=== PATIENT | female | born 1940 | race Caucasian/White ===

== ENCOUNTER 2016-11-26 10:35 | Outpatient (CLI) | payer MEDICARE, OTHER | END 2016-11-26 10:36 | disposition home or self-care (01) | DX: Z12.31 Encounter for screening mammogram for malignant neoplasm of breast (principal) ==

== ENCOUNTER 2017-01-15 11:19 | Outpatient (CLI) | payer MEDICARE, OTHER ==
[2017-01-15 19:52] LABS: ALBUMIN/GLOBULIN RATIO 1.2 (1.0-2.2); BILIRUBIN,TOTAL 0.5 mg/dL (0.2-1.0); BUN - BLOOD UREA NITROGEN 45 mg/dL (6-20); CALCIUM 8.2 mg/dL (8.5-10.3); CARBON DIOXIDE - CO2 27 mmol/L (21-32); CHLORIDE 107 mmol/L (101-111); CHOL/HDL RATIO 2.8 (<4.4); CHOLESTEROL 198 mg/dL; CREATININE 2.5 mg/dL (0.4-1.0); GFR - MDRD 19 (>89); GLUCOSE 144 mg/dL (70-100); HDL CHOLESTEROL 70 mg/dL; LDL/HDL RATIO 1.5 (<4.4); POTASSIUM 5.1 mmol/L (3.5-5.0); SODIUM 141 mmol/L (135-145); TOTAL PROTEIN 5.5 g/dL (6.7-8.2); TRIGLYCERIDES 106 mg/dL; VLDL CHOLESTEROL 21 mg/dL
[2017-01-15 20:16] LABS: HEMOGLOBIN A1C 0.53 g/dL
== END 2017-01-15 11:20 | disposition home or self-care (01) ==
LOC: LAB.WCP 11:19
PROVIDERS: ATTEND Physician Assistant Medical
DX: E11.9 Type 2 diabetes mellitus without complications (principal); E05.90 Thyrotoxicosis, unspecified without thyrotoxic crisis or storm; E78.5 Hyperlipidemia, unspecified
CPT/HCPCS: 36415; 80053; 80061; 83036; 84443

== ENCOUNTER 2017-01-17 08:00 | Outpatient (CLI) | payer MEDICARE, OTHER ==
[2017-01-17 19:40] LABS: CREATININE 2.3 mg/dL (0.4-1.0); POTASSIUM 4.6 mmol/L (3.5-5.0)
== END 2017-01-17 08:01 | disposition home or self-care (01) ==
LOC: LAB.WCP 08:00
PROVIDERS: ATTEND Physician Assistant Medical
DX: N28.9 Disorder of kidney and ureter, unspecified (principal)
CPT/HCPCS: 36415; 80048

== ENCOUNTER 2017-04-10 13:55 | Outpatient (CLI) | payer MEDICARE, OTHER | END 2017-04-10 13:56 | disposition home or self-care (01) | LOC: LAB.R 13:55 | PROVIDERS: ATTEND Physician Assistant Medical | DX: L03.116 Cellulitis of left lower limb (principal) | CPT/HCPCS: 87070; 87205 ==

== ENCOUNTER 2017-04-10 14:11 | Outpatient (CLI) | payer MEDICARE, OTHER ==
[2017-04-10 18:57] LABS: BASOPHILS # (AUTO) 0.1 10^3/uL (0.0-0.1); BASOPHILS % (AUTO) 0.7 %; EOSINOPHILS # (AUTO) 0.3 10^3/uL (0.0-0.7); EOSINOPHILS % (AUTO) 3.2 %; HCT - HEMATOCRIT 31.2 % (37.0-47.0); HGB - HEMOGLOBIN 10.4 g/dL (12.0-16.0); LYMPHOCYTES # (AUTO) 1.4 10^3/uL (1.5-3.5); LYMPHOCYTES % (AUTO) 17.1 %; MEAN CORPUSCULAR HEMOGLOBIN 31.8 pg (27.0-31.0); MEAN CORPUSCULAR HGB CONC 33.4 g/dL (32.0-36.0); MEAN CORPUSCULAR VOLUME 95.2 fL (81.0-99.0); MEAN PLATELET VOLUME 8.9 fL (7.9-10.8); MONOCYTES # (AUTO) 0.6 10^3/uL (0.0-1.0); MONOCYTES % (AUTO) 7.2 %; NEUTROPHILS % (AUTO) 71.8 %; RED BLOOD COUNT 3.28 10^6/uL (4.20-5.40); RED CELL DISTRIBUTION WIDTH 13.1 % (12.0-15.0); UNCORRECTED WHITE BLOOD COUNT 8.4 x10^3/uL; WHITE BLOOD COUNT 8.4 x10^3/uL (4.8-10.8)
[2017-04-10 19:27] LABS: CALCIUM 8.2 mg/dL (8.5-10.3); CREATININE 2.6 mg/dL (0.4-1.0); POTASSIUM 4.7 mmol/L (3.5-5.0)
== END 2017-04-10 14:12 ==
LOC: LAB.WCP 14:11
PROVIDERS: ATTEND Physician Assistant Medical
DX: I50.9 Heart failure, unspecified (principal)
CPT/HCPCS: 36415; 80048; 83880; 85025

== ENCOUNTER 2017-04-15 16:30 | Outpatient (CLI) | payer MEDICARE, OTHER ==
--- NOTE | 2017-04-16 03:46 | Ultrasound Report ---
EXAM: LEFT LOWER EXTREMITY VENOUS ULTRASOUND EXAM DATE: 04/15/2017 05:34 PM. CLINICAL HISTORY: LEG EDEMA, LEFT. COMPARISON: None. TECHNIQUE: Real-time sonographic vascular imaging was performed by the toll ticket clerk through the lower extremity utilizing both color-flow and Doppler spectral analysis. Multiple insurance claims representative static jaz ges were saved for review. FINDINGS: Common Femoral Vein (CFV): Normal. CFV-GSV Junction: Normal. Profunda Femoral Vein (PFV): Normal. Femoral Vein (FV) Prox: Normal. Femoral Vein (FV) Mid: Normal. Femoral Vein (FV) Dist: Normal. Popliteal Vein: Normal. Posterior Tibial Veins: Normal. Peroneal Veins: Normal. Contralateral Side CFV: Normal. Other: None. IMPRESSION: No evidence for deep venous thrombosis. [facility] Referring Provider Line: [phone] SITE ID: [id number]
== END 2017-04-15 16:31 | disposition home or self-care (01) ==
LOC: DI 16:30
PROVIDERS: ATTEND Physician Assistant Medical
DX: R60.0 Localized edema (principal)

== ENCOUNTER 2017-04-18 16:55 | Outpatient (CLI) | payer MEDICARE, OTHER ==
[2017-04-18 19:08] LABS: BASOPHILS # (AUTO) 0.1 10^3/uL (0.0-0.1); BASOPHILS % (AUTO) 0.7 %; EOSINOPHILS # (AUTO) 0.3 10^3/uL (0.0-0.7); EOSINOPHILS % (AUTO) 4.1 %; HCT - HEMATOCRIT 30.2 % (37.0-47.0); LYMPHOCYTES # (AUTO) 1.1 10^3/uL (1.5-3.5); LYMPHOCYTES % (AUTO) 14.4 %; MEAN CORPUSCULAR HGB CONC 33.1 g/dL (32.0-36.0); MEAN CORPUSCULAR VOLUME 93.4 fL (81.0-99.0); MEAN PLATELET VOLUME 8.7 fL (7.9-10.8); MONOCYTES # (AUTO) 0.6 10^3/uL (0.0-1.0); MONOCYTES % (AUTO) 7.9 %; NEUTROPHILS # (AUTO) 5.4 10^3/uL (1.5-6.6); NEUTROPHILS % (AUTO) 72.9 %; RED BLOOD COUNT 3.24 10^6/uL (4.20-5.40); UNCORRECTED WHITE BLOOD COUNT 7.4 x10^3/uL; WHITE BLOOD COUNT 7.4 x10^3/uL (4.8-10.8)
[2017-04-18 19:21] LABS: CALCIUM 7.9 mg/dL (8.5-10.3); POTASSIUM 4.2 mmol/L (3.5-5.0)
== END 2017-04-18 16:56 ==
LOC: LAB.WCP 16:55
PROVIDERS: ATTEND Physician Assistant Medical
DX: R60.0 Localized edema (principal); R06.09 Other forms of dyspnea; L03.116 Cellulitis of left lower limb
CPT/HCPCS: 36415; 80048; 83880; 85025

== ENCOUNTER 2017-05-10 08:00 | Outpatient (CLI) | payer MEDICARE, OTHER ==
[2017-05-10 20:26] LABS: FERRITIN 31.5 ng/mL (11.0-306.8)
[2017-05-10 20:28] LABS: CALCIUM 8.2 mg/dL (8.5-10.3); CREATININE 2.7 mg/dL (0.4-1.0); POTASSIUM 5.1 mmol/L (3.5-5.0)
[2017-05-10 20:30] LABS: FOLATE 17.33 ng/mL (5.90 - >24.8)
== END 2017-05-10 08:01 | disposition home or self-care (01) ==
LOC: LAB.WCP 08:00
PROVIDERS: ATTEND Physician Assistant Medical
DX: N28.9 Disorder of kidney and ureter, unspecified (principal); D64.9 Anemia, unspecified
CPT/HCPCS: 36415; 80048; 82607; 82728; 82746; 83540; 84466

== ENCOUNTER 2017-05-21 13:22 | Outpatient (CLI) | payer MEDICARE, OTHER ==
[2017-05-21 19:43] LABS: CALCIUM 8.2 mg/dL (8.5-10.3); CREATININE 2.1 mg/dL (0.4-1.0); POTASSIUM 4.6 mmol/L (3.5-5.0)
[2017-05-21 19:53] LABS: HCT - HEMATOCRIT 33.9 % (37.0-47.0); HGB - HEMOGLOBIN 10.9 g/dL (12.0-16.0); MEAN CORPUSCULAR HEMOGLOBIN 30.8 pg (27.0-31.0); MEAN CORPUSCULAR HGB CONC 32.2 g/dL (32.0-36.0); MEAN CORPUSCULAR VOLUME 95.7 fL (81.0-99.0); MEAN PLATELET VOLUME 9.1 fL (7.9-10.8); RED BLOOD COUNT 3.54 10^6/uL (4.20-5.40); RED CELL DISTRIBUTION WIDTH 14.4 % (12.0-15.0); WHITE BLOOD COUNT 6.5 x10^3/uL (4.8-10.8)
== END 2017-05-21 13:23 | disposition home or self-care (01) ==
LOC: LAB.WCP 13:22
PROVIDERS: ATTEND Internal Medicine Nephrology
DX: N05.9 Unspecified nephritic syndrome with unspecified morphologic changes (principal); D70.9 Neutropenia, unspecified; D63.1 Anemia in chronic kidney disease; E83.30 Disorder of phosphorus metabolism, unspecified; D68.9 Coagulation defect, unspecified
CPT/HCPCS: 36415; 80048; 83970; 84100

== ENCOUNTER 2017-06-03 15:05 | Outpatient (CLI) | payer MEDICARE, OTHER ==
--- NOTE | 2017-06-03 16:02 | Ultrasound Report ---
RENAL ULTRASOUND: 06/03/2017 CLINICAL INDICATION: Stage IV kidney disease. COMPARISON: 01/16/2015 TECHNIQUE: Real-time scanning was performed with sales solutions representative static images obtained. FINDINGS: The right kidney measures 9.5 x 5.0 x 4.8 cm, and demonstrates a 5-mm exophytic cyst. No hydronephrosis, solid renal lesion, or perinephric collection is present. The left kidney measures 10.1 x 4.7 x 4.2 cm. There is a 4.1-cm upper pole cyst. No solid renal les ion, hydronephrosis, or perinephric collection is present. Prevoid, the bladder measures 8.9 x 5.2 x 4.8 cm, yielding a prevoid volume of 127 mL. Postvoid resi dual is 49 mL. No free fluid is noted. IMPRESSION: 49 ML POSTVOID RESIDUAL. NO HYDRONEPHROSIS. JOB #: [id number] EXT JOB #:[id number]
== END 2017-06-03 15:06 | disposition home or self-care (01) ==
LOC: DI 15:05
PROVIDERS: ATTEND Internal Medicine Nephrology
DX: N18.4 Chronic kidney disease, stage 4 (severe) (principal)
CPT/HCPCS: 76770

== ENCOUNTER 2017-06-20 08:00 | Outpatient (CLI) | payer MEDICARE, OTHER ==
[2017-06-20 20:15] LABS: CALCIUM 8.3 mg/dL (8.5-10.3); CREATININE 2.5 mg/dL (0.4-1.0); POTASSIUM 4.6 mmol/L (3.5-5.0)
[2017-06-20 20:29] LABS: FERRITIN 27.5 ng/mL (11.0-306.8)
[2017-06-20 20:33] LABS: FOLATE 13.46 ng/mL (5.90 - >24.8)
== END 2017-06-20 08:01 | disposition home or self-care (01) ==
LOC: LAB.WCP 08:00
PROVIDERS: ATTEND Internal Medicine Nephrology
DX: N05.9 Unspecified nephritic syndrome with unspecified morphologic changes (principal); D50.0 Iron deficiency anemia secondary to blood loss (chronic); D64.9 Anemia, unspecified
CPT/HCPCS: 36415; 80048; 82607; 82728; 82746; 83540; 84466

== ENCOUNTER 2017-09-20 08:00 | Outpatient (CLI) | payer MEDICARE, OTHER ==
[2017-09-20 19:06] LABS: HGB - HEMOGLOBIN 9.9 g/dL (12.0-16.0); MEAN CORPUSCULAR HEMOGLOBIN 30.6 pg (27.0-31.0); MEAN CORPUSCULAR HGB CONC 32.2 g/dL (32.0-36.0); MEAN CORPUSCULAR VOLUME 95.2 fL (81.0-99.0); MEAN PLATELET VOLUME 8.2 fL (7.9-10.8); RED BLOOD COUNT 3.22 10^6/uL (4.20-5.40); RED CELL DISTRIBUTION WIDTH 13.3 % (12.0-15.0); WHITE BLOOD COUNT 9.3 x10^3/uL (4.8-10.8)
[2017-09-20 19:16] LABS: CREATININE 2.8 mg/dL (0.4-1.0); URIC ACID 8.7 mg/dL (2.6-7.2)
[2017-09-20 21:15] LABS: CREATININE,URINE 42.3 mg/dL; PROTEIN/CREATININE RATIO,URINE 3.1 (<=0.2)
[2017-09-24 23:11] LABS: ALBUMIN 2.7 g/dL (3.8-4.8); ALPHA 1 GLOBULIN 0.4 g/dL (0.2-0.3); ALPHA 2 GLOBULIN 0.6 g/dL (0.5-0.9); ANCA SCREEN NEGATIVE (NEGATIVE); BETA 1 GLOBULIN 0.4 g/dL (0.4-0.6); BETA 2 GLOBULIN 0.3 g/dL (0.2-0.5); GAMMA GLOBULIN 0.7 g/dL (0.8-1.7)
== END 2017-09-20 08:01 | disposition home or self-care (01) ==
LOC: LAB.WCP 08:00
PROVIDERS: ATTEND Family Medicine
DX: M79.671 Pain in right foot (principal); D70.9 Neutropenia, unspecified; M31.30 Wegener's granulomatosis without renal involvement; N05.9 Unspecified nephritic syndrome with unspecified morphologic changes; D63.1 Anemia in chronic kidney disease; D47.2 Monoclonal gammopathy; R80.9 Proteinuria, unspecified
CPT/HCPCS: 36415; 80048; 81599; 82570; 84155; 84156; 84165; 84166; 84550; 85025; 86021; 86334; 86335

== ENCOUNTER 2017-10-16 20:53 | Outpatient (CLI) | payer MEDICARE, OTHER ==
--- NOTE | 2017-10-16 22:41 | Ultrasound Preliminary Report ---
Exam: US DUPLEX EXT VEINS RIGHT IMPRESSION: 1. Limited study given significant soft tissue edema throughout the right leg. 2. Given the limitations, no deep venous thrombosis is seen. 3. Hypoechoic fluid collection in the lateral right knee measuring 2.2 x 1.8 x 0.7 cm. [facility] The call report notification system was initiated by Dr. Marcela Mchugh at 22:35 hrs on 10/16/17. The above findings were discussed with ANGELES Moody by Dr. Marcela Mchugh at 22:39 hrs on . SITE ID: [id number]
--- NOTE | 2017-10-16 23:19 | Ultrasound Report ---
EXAM: RIGHT LOWER EXTREMITY VENOUS ULTRASOUND EXAM DATE: 10/16/2017 10:19 PM. CLINICAL HISTORY: Right leg edema. COMPARISON: None. TECHNIQUE: Real-time sonographic vascular imaging was performed by the script girl through the lower extremity utilizing both color-flow and Doppler spectral analysis. Multiple patient financial representative static jaz ges were saved for review. FINDINGS: Common Femoral Vein (CFV): Normal. CFV-GSV Junction: Normal. Profunda Femoral Vein (PFV): Normal. Femoral Vein (FV) Prox: Normal. Femoral Vein (FV) Mid: No thrombus. Not well seen. Femoral Vein (FV) Dist: No thrombus. Not well seen. Popliteal Vein: Normal. Posterior Tibial Veins: Not well seen. No obvious thrombus. Peroneal Veins: Not well seen. No obvious thrombus. Contralateral Side CFV: Normal. Other: Significant limitations due to soft tissue edema. Collection in the lateral right knee region measures 2.2 x 1.8 x 0.7 cm. Definite continuity with the joint space is not established. IMPRESSION: 1. Limited study given significant soft tissue edema throughout the right leg. 2. Given the limitations, no deep venous thrombosis is seen. 3. Hypoechoic fluid collection in the lateral right knee measuring 2.2 x 1.8 x 0.7 cm. [facility] The call report notification system was initiated by Dr. Marcela Mchugh at 22:35 hrs on 10/16/17. The above findings were discussed with ANGELES Moody by Dr. Marcela Mchugh at 22:39 hrs on . Referring Provider Line: [phone] SITE ID: [id number]
--- NOTE | 2017-10-17 13:16 | XRAY Report ---
TWO VIEW CHEST: 10/17/2017 CLINICAL INDICATION: Dyspnea on exertion. COMPARISON: 04/10/2017. FINDINGS: Frontal and lateral views of the chest demonstrate an enlarged cardiac silhouette. Mild pulmonary vascular congestion is present, as are small effusions. No pneumothorax or focal infiltrate is seen. IMPRESSION: MILD CONGESTIVE FAILURE. TD: 10/17/2017 13:15
== END 2017-10-16 20:54 | disposition home or self-care (01) ==
LOC: DI 20:53
PROVIDERS: ATTEND Physician Assistant Medical
DX: I50.9 Heart failure, unspecified (principal); M25.461 Effusion, right knee; R60.0 Localized edema
CPT/HCPCS: 71046

== ENCOUNTER 2017-10-22 08:00 | Outpatient (CLI) | payer MEDICARE, OTHER ==
[2017-10-22 19:28] LABS: CALCIUM 7.6 mg/dL (8.5-10.3); CREATININE 2.9 mg/dL (0.4-1.0)
== END 2017-10-22 08:01 | disposition home or self-care (01) ==
LOC: LAB.R 08:00
PROVIDERS: ATTEND Physician Assistant Medical
DX: R60.0 Localized edema (principal)
CPT/HCPCS: 80048

== ENCOUNTER 2017-11-18 14:22 | Outpatient (CLI) | payer MEDICARE, OTHER ==
[2017-11-18 21:15] LABS: CALCIUM 7.8 mg/dL (8.5-10.3); CREATININE 3.7 mg/dL (0.4-1.0)
== END 2017-11-18 14:23 | disposition home or self-care (01) ==
LOC: LAB.WCP 14:22
PROVIDERS: ATTEND Physician Assistant Medical
DX: R60.0 Localized edema (principal); L03.116 Cellulitis of left lower limb
CPT/HCPCS: 36415; 80048; 87070; 87205

== ENCOUNTER 2017-11-19 14:05 | Emergency (ER) | payer MEDICARE, OTHER ==
[2017-11-19 14:17] VITALS: BP 143/42
--- NOTE | 2017-11-19 16:40 | ED Physician Documentation ---
PD HPI LOWER EXT INJURY - Stated complaint Stated Complaint: SORES ON LEGS - Chief complaint Chief Complaint: Wound - History obtained from History obtained from: Patient - History of Present Illness PD HPI LOW EXT INJURY LOCATION: Right, Left, Lower leg Type of injury: Blunt / blow, Laceration (yesterday when she bumpded her shins into dishwaswer and got peels of skin from then. Still with skin in place, but is thin, to have dressing changed toay.) Where injury occurred: Home Review of Systems Constitutional: denies: Fever, Chills Cardiac: denies: Chest pain / pressure, Palpitations Respiratory: denies: Dyspnea, Cough GI: denies: Abdominal Pain, Nausea, Vomiting PD PAST MEDICAL HISTORY - Past Medical History Past Medical History: Yes Cardiovascular: Congestive heart failure, Hypertension, High cholesterol, Valve disorder Respiratory: Pneumonia - Past Surgical History Past Surgical History: Yes - Present Medications Home Medications: Ambulatory Orders Medication Instructions Recorded Confirmed Amlodipine Besylate 10 mg PO DAILY 02/04/15 02/04/15 Aspirin [Aspirin EC] 81 mg PO DAILY 02/04/15 02/04/15 Atorvastatin Calcium 40 mg PO DAILY 02/04/15 02/04/15 Carvedilol 12.5 mg PO BID 02/04/15 02/04/15 Furosemide 80 mg PO DAILY 02/04/15 02/04/15 Isosorbide Mononitrate [Isosorbide 30 mg PO DAILY 02/04/15 02/04/15 Mononitrate ER] Lisinopril 5 mg PO BID 02/04/15 02/04/15 Tramadol HCl 50 mg PO Q6H PRN #20 tablet 11/19/17 - Allergies Allergies/Adverse Reactions: Allergies Allergy/AdvReac Type Severity Reaction Status Date / Time No Known Drug Allergies Allergy Verified 01/15/15 13:46 - Social History Does the pt smoke?: No Smoking Status: Never smoker Does the pt drink ETOH?: Yes ETOH Use: Wine, Liquor Does the pt have substance abuse?: No - Immunizations Immunizations are current?: Yes - POLST Patient has POLST: No PD ED PE NORMAL - Vitals Vital signs reviewed: Yes - General General: Alert and oriented X 3, No acute distress, Well developed/nourished - Neck Neck: Supple, no meningeal sign, No adenopathy - Cardiac Cardiac: RRR, No murmur - Respiratory Respiratory: Clear bilaterally - Abdomen Abdomen: Soft, Non tender - Female Female : Deferred - Rectal Rectal: Deferred - Back Back: No CVA TTP, No spinal TTP - Derm Derm: Normal color, Warm and dry - Extremities Extremities: No tenderness to palpate, Normal ROM s pain, No edema, Other ( partial thickenss peels of skin present, with dressing. Normal sensaton , color cap refill. Good dressing in place. Removed and the wound does not appear infecto ). No: No calf tenderness / cord - Neuro Neuro: Alert and oriented X 3 Eye Opening: Spontaneous Motor: Obeys Commands Verbal: Oriented GCS Score: 15 Results - Vitals Vitals: Oxygen O2 Source Room air PD MEDICAL DECISION MAKING - ED course Complexity details: reviewed results, re-evaluated patient (I think she got into ED inadvertnetly, and was usupposed to go to [facility]. Will direct her to right location for next scheduled dressing change. ), considered differential (peels of thin skin in place. Dressing in place with some drainage color of the bandages), d/w patient Departure - Departure Disposition: 01 Home, Self Care Clinical Impression: Dressing change Laceration of lower leg Qualifiers: Encounter type: initial encounter Laterality: unspecified laterality Qualified Code(s): S81.819A - Laceration without foreign body, unspecified lower leg, initial encounter Condition: Stable Record reviewed to determine appropriate education?: Yes Instructions: ED Bandage Change Follow-Up: Isabel Steve PA-C [Primary Care Provider] - Prescriptions: Tramadol HCl 50 mg PO Q6H PRN #20 tablet PRN Reason: Pain Comments: Leave the dressings on until follow-up. Contact your primary care tomorrow to see if she intended for you to go to the wound care clinic as opposed to the emergency room. See when the next appointment is for that. Use Tylenol or ibuprofen if needed for pains. Add tramadol if needed for worse pain. Get the antibiotics prescribed by your primary care in start taking those. Follow-up for dressing change as directed by her primary care. Discharge Date/Time: 11/19/17 17:45
[2017-11-19] MEDS ORDERED: MUPIROCIN 2% OINT 1 GM TOP STA (16:58)
[2017-11-19] MEDS ORDERED: ACETAMINOPHEN 325 MG TABLET PO STA (17:16)
[2017-11-19] MEDS ORDERED: IBUPROFEN 400 MG TABLET PO STA (17:16)
== END 2017-11-19 17:45 | disposition home or self-care (01) ==
LOC: ED 14:05
DX: S81.819A Laceration without foreign body, unspecified lower leg, initial encounter (principal); W22.09XA Striking against other stationary object, initial encounter; Y92.009 Unspecified place in unspecified non-institutional (private) residence as the place of occurrence of the external cause; Z48.00 Encounter for change or removal of nonsurgical wound dressing; I11.0 Hypertensive heart disease with heart failure; I50.9 Heart failure, unspecified; E78.00 Pure hypercholesterolemia, unspecified; Z79.82 Long term (current) use of aspirin
CPT/HCPCS: 99283; A9270

== ENCOUNTER 2017-11-20 17:15 | Outpatient (CLI) | payer MEDICARE, OTHER ==
[2017-11-20 18:53] LABS: BASOPHILS % (AUTO) 0.4 %; EOSINOPHILS # (AUTO) 0.1 10^3/uL (0.0-0.7); EOSINOPHILS % (AUTO) 1.1 %; LYMPHOCYTES # (AUTO) 0.5 10^3/uL (1.5-3.5); LYMPHOCYTES % (AUTO) 5.2 %; MEAN CORPUSCULAR HEMOGLOBIN 30.7 pg (27.0-31.0); MEAN CORPUSCULAR VOLUME 95.9 fL (81.0-99.0); MEAN PLATELET VOLUME 8.6 fL (7.9-10.8); MONOCYTES # (AUTO) 0.6 10^3/uL (0.0-1.0); MONOCYTES % (AUTO) 7.4 %; NEUTROPHILS # (AUTO) 7.5 10^3/uL (1.5-6.6); NEUTROPHILS % (AUTO) 85.9 %; PLT - PLATELET COUNT 256 10^3/uL (130-450); RED BLOOD COUNT 2.94 10^6/uL (4.20-5.40); RED CELL DISTRIBUTION WIDTH 15.3 % (12.0-15.0); WHITE BLOOD COUNT 8.7 x10^3/uL (4.8-10.8)
[2017-11-20 19:05] LABS: CALCIUM 7.5 mg/dL (8.5-10.3); CREATININE 4.6 mg/dL (0.4-1.0)
== END 2017-11-20 17:16 | disposition home or self-care (01) ==
LOC: LAB.R 17:15
PROVIDERS: ATTEND Physician Assistant Medical
DX: N28.9 Disorder of kidney and ureter, unspecified (principal); L03.116 Cellulitis of left lower limb
CPT/HCPCS: 80048; 85025

== ENCOUNTER 2018-01-19 08:00 | Outpatient (CLI) | payer MEDICARE, OTHER ==
[2018-01-20 08:12] LABS: CREATININE,URINE 44.4 mg/dL
== END 2018-01-19 23:59 | disposition home or self-care (01) ==
LOC: LAB.R 08:00
DX: N18.9 Chronic kidney disease, unspecified (principal); I50.42 Chronic combined systolic (congestive) and diastolic (congestive) heart failure
CPT/HCPCS: 81599; 82570; 84540

== ENCOUNTER 2018-01-22 13:23 | Outpatient (CLI) | payer MEDICARE, OTHER ==
--- NOTE | 2018-01-22 16:36 | CONSULTATION NOTE ---
Palliative Care Consultation - Referral Referring Provider: Dr Dave Herr Time of Visit: 01/22/2018. 9:20 - 10:50 Referral setting: [facility] ([facility]) Referral Reason: CHF / CKD end stage / Adv Care Planning - Information Sources Records reviewed: RN notes reviewed, Previous records reviewed History/Review of Systems obtained from: Patient, Nursing, Other (Dr Herr; [facility]) Exam limitations: No limitations - History of Present Illness Brief History of Present Illness: Thank you, Dr Herr, for asking the palliative care consult service to be involved in the care of your patient. I am asked to provide support regarding symptom management, transitioning home and advanced care planning. 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 She currently resides at [facility] for rehabilitation and post- acute care and plans to D/C to her [facility] home. 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 -She was hospitalized at [facility] from December 17-2017, for severe mitral regurgitation and tricuspid regurgitation, renal failure on hemodialysis, anemia secondary to CKD, and possible pulmonary disease (h/o smoking). -During the course of hospitalization she developed persistent hypoxia requiring intubation, and significant bilateral pleural effusions requiring both R and L thoracentesis. -She was also treated for CHF. -Echo of 12/22/17 showed mild improvement in the mitral and tricuspid regurgitation. -She was converted to hemodialysis subsequent to a previous hospitalization in November 2017 at [facility] in [place]. -She was followed by [facility], Dr Avila in [place], and then by Dr Stark, [facility]. -Her wind turbine electrical engineer is Dr SUJATHA Kent. -The current plan is to discharge her home in the next two weeks. -The patient is very determined to go back to her home. 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 -Her two sons have supported the suggestion she sell the house and move into something smaller, more practical in town. -She originally vehemently resisted this, but more recently is becoming more amenable to the idea though she says it goes against the grain for her. -Nursing safety check has been done on her home. -It is a tri-level with multiple stairs and landings between the 2 living areas , as well as stairs to enter the house. -The occupational therapist estimates the patient could live there as long as she uses O2 24/7 (so far she is often non-compliant), has sufficient caregiver support, and never navigates the stairs on her own. -Her bedroom and bathroom is on one level and the living area, bathroom, kitchen are on a separate level. -The pt has said she is willing to sleep on the couch and live mostly on the living room level. -My evaluation is that living back in her current home won't be feasible or safe. -She becomes hypoxic off oxygen (86% on room air after 30 minutes; 94% on 2L O2 via cannula), but is not aware when she is hypoxic and unable to administrative judge when she needs oxygen, hence her fall risk is extremely high. -She is going to dialysis 3x/week, and the transport issue will need resolving. [employer] does not go to her neighborhood. -She wonders aloud if she could drive herself to dialysis, but she cannot. It is unsafe for her to drive at all due to hypoxia risk. -She is making progress in rehab, improving ability to shower independently, working with staff on meal and food prep, ambulating. Medical/Surgical History - Past Medical History Cardiovascular: reports: Congestive heart failure, Hypertension, High cholesterol, Valve disorder (mitral and tricuspid regurgitation; aortic valve sclerosis) Respiratory: reports: Pneumonia Endocrine/Autoimmune: reports: Type 2 diabetes (controlled by diet; diagnosed @ 10 years ago), HyPERthyroidism GI: reports: None, Colon polyps (h/o) : reports: None, Renal insuffiency HEENT: reports: Chronic vision loss (L eye removed), Other (Cancer in situ, L eye removed surgically in 2007) Psych: reports: Depression, Anxiety, Panic attacks Musculoskeletal: reports: Osteoarthritis, Gout, Fatigue Derm: reports: Other (h/o cellulitis; h/o seborrheic keratosis) MRSA Hx?: No - Past Surgical History HEENT: reports: Other (surgical removal L eye s/p cancer in situ) - Substance History Tobacco Details: Cigarettes (Smoked one pack every two weeks, stopped completely prior to previous hospitalization.) Social History - Living Situation Living arrangement: [facility] (Currently at [facility] for custodial and rehabilitation. 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 Her younger son, Frederick, lives in [place]. Her other son, Jaspal, lives in [place]. Family History - Family History Family History Comment/Other: Her father was killed in WW[place], her mother from a CVA. She has 2 living siblings in [place], unknown health status. She moved from [facility] in the 1960s. Medications/Allergies - Medications Home Medications: Ambulatory Orders Medication Instructions Recorded Confirmed Amlodipine Besylate 5 mg PO DAILY 02/04/15 01/23/18 Aspirin [Aspirin EC] 81 mg PO DAILY 02/04/15 01/23/18 Atorvastatin Calcium 20 mg PO DAILY 02/04/15 01/23/18 Carvedilol 12.5 mg PO BID 02/04/15 01/23/18 Isosorbide Mononitrate [Isosorbide 30 mg PO DAILY 02/04/15 01/23/18 Mononitrate ER] Lisinopril 5 mg PO BID 02/04/15 01/23/18 Acetaminophen [Tylenol] 1 - 2 tab PO Q4H PRN 12/13/17 01/23/18 Torsemide 40 mg PO BID 12/13/17 01/23/18 Boost Health Shake 1 ea PO DAILY 01/23/18 Cholecalciferol (Vitamin D3) 2,000 unit PO DAILY 01/23/18 01/23/18 [Vitamin D3] House Bowel Program 1 ea DAILY PRN 01/23/18 Hydralazine HCl 25 mg PO DAILY 01/23/18 01/23/18 Multivitamin [Multiple Vitamins] 1 ea PO DAILY 01/23/18 01/23/18 - Allergies Allergies/Adverse Reactions: Allergies Allergy/AdvReac Type Severity Reaction Status Date / Time No Known Drug Allergies Allergy Verified 01/15/15 13:46 Review of Systems - Constitutional Constitutional: reports: Weight stable (Baseline weight of 105-109 lbs, all her adult life.). denies: Poor appetite - Eyes Eyes: reports: Vision loss, Other (L eye surgically removed 2008 s/p cancer in situ) - Ears, Nose & Throat Ears, Nose & Throat: denies: Hearing loss - Cardiovascular Cardiovascular: reports: Exertional dyspnea, Decr. exercise tolerance. denies: Chest pain, Edema - Respiratory Respiratory: reports: SOB with exertion - Gastrointestinal Gastrointestinal: reports: Good appetite. denies: Constipation, Change in bowel habits, Poor appetite - Genitourinary Genitourinary: denies: Dysuria, Incontinence - Neurological Neurological: denies: Memory problems - Psychiatric Psychiatric: reports: Anxiety - All Other Systems All Other Systems: reports: Reviewed and negative Physical Exam - Vital Signs Temperature: 96.7 F Pulse Rate: 70 O2 Saturation: 94 (on 2L O2. 86% on RA.) Blood Pressure: 140/56 - Physical Exam General Appearance: positive: No acute distress, Alert Eyes Bilateral: positive: No lid inflammation, Conjunctivae nml, No scleral icterus, Other (L eyeball prosthesis). negative: EOMI ENT: positive: No signs of dehydration Neck: positive: No JVD, Trachea midline Cardiovascular: positive: Regular rate & rhythm, Systolic murmur (2/6) Respiratory: positive: Chest non-tender, No respiratory distress, Rales (fine crackles bilateral. uses spirometry) Abdomen: positive: Non-tender, Soft Skin: positive: Dryness Extremities: positive: No pedal edema Neurologic/Psychiatric: positive: Oriented x3, Sensation nml, Mood/affect nml Palliative Care - POLST Patient has POLST: Yes POLST Status: Selective Treatment, Full Code (POLST incomplete and not signed by a physician) Pain: No pain Depression: Mild (1-3) Anxiety: Mild (1-3) Anorexia: None Sleep: Sleeps well Constipation: No Feelings of wellbeing/Perceived Quality of Life: Improved Performance Status: Doing ADLs independently and starting to practice showering without help. She is also doing practical meal preparation/cooking with staff. She is practicing with and without O2 via cannula, but does become hypoxic without sensing that she is hypoxic. She is still hoping to be able to drive, and wondering if she can drive herself to dialysis (she can't). Her main goal and hope is living back in her tri-level home with outside steps to the front door. Therapy is working with her to make that happen, but it's highly problematic that situation will be safe long-term. - Palliative Care Discussion: Patient has shown resiliency in life. She became teary when I asked what sustains her and she related that when she was diagnosed with cancer (L eye insitu) she wanted to end it all, but instead fought back and survived. She continued to live independently and work full-time up until this past October, when her health declined so rapidly. This abrupt change in her health and circumstances has been extremely difficult. She says she's had a hard life but has kept going and she will continue to. At the care conference it was presented that she could sell her home (it[place] from [facility], is tri-level and has numerous steps up to the front door), and she was vehemently opposed to this. Her dream is to have that home for her sons when she is gone. However, her sons have told her to sell it, they don't need it because they have their own homes. So she may be considering this step, though she says it goes against her grain. Having her sons' support and encouragement makes all the difference. It is unclear what the financial situation is, particularly since she was working shell [employer] at age 77. Her assets are listed as her home and a "vacation home" which is a type of RV, but she may qualify for Medicaid. MITZI is still waiting for her son to turn in the application and will follow up on this. The "bare bones" amy has been submitted. Her goal is to discharge home in about two weeks, and rehabilitation is geared toward this goal. The occupational therapist who went on the safety tour of the house thinks her living there could be doable, if she uses the oxygen continually and never uses the stairs herself. That means caregivers and a lot of logistical coordination. The issue of driving and getting her to dialysis 3x /week is still to be resolved. Qian doesn't go to her house. Her son in [place] works, and there doesn't appear to be a family member who could drive her. If she qualifies for Medicaid, she could obtain ISATU support. She signed a POLST in December 2017, but it is incomplete and without physician signature. She has chosen CPR and selective treatment and does not want artificial feeding by tube. We will continue the conversation at subsequent visit. Impression and Recommendations - Palliative Care Impression: Independent 77-year-old female with multiple comorbidities, including a recent transition to renal dialysis for end-stage CKD. Currently at [facility] for rehabilitation following hospitalization for. Her current plan is to discharge home in several weeks, but there are numerous drawbacks and safety issues regarding such discharge. She becomes hypoxic , now requires oxygen, and has renal dialsysis 3x/week and currently no means of transporting herself there once she is back home. She is considering her alternatives and MITZI at [facility] is working with her. She would benefit from palliative care oversight and monitoring. Recommendations/Counseling Done: Constipation: Patient denies any, reports she has regular BMs daily. Requested that staff stop bringing her senna tablets. I DC'd the senna. CKD on dialysis: Renal dialysis 3x weekly, M,W,F leaves at noon, back around 18 :00. SUJATHA Kent is her wind turbine electrical engineer. Patient is hopeful she can eventually stop dialysis; it is unknown if this is could happen. Avoid nephrotoxic medications such as NSAIDs. Chronic respiratory failure with hypoxia: Patient desaturates to 86% off of oxygen, and is 94% on O2. Continue 2L via cannula. Systolic CHF: Currently asymptomatic. Continue amlodipine, carvedilol and torsemide. Dr Stark at [facility] is director of employee development. HTN: BP 140/56. Continue amolidpine, carvedilol, hydralazine Osteoporosis: Stable, she uses PRN Tylenol 650mg usually once a day toward the evening. Advanced care planning: POLST is only half completed and unsigned by physician. She currently has CPR and selective treatment. Will further discuss goals of care at follow up visit. Current goal is to discharge home in about two weeks, logistics still being worked out. Her current home is not safe though therapist thinks it could be workable within strict criteria (24 hour O2 , patient never alone on the stairs). INSTRUMENT PERSON is following up with family on the Medicaid application. Assisted living is also an option to explore. Follow up after discharge. Time Spent: 90 minutes were spent with more than 50% of the time spent on counseling, education, and coordination of care.
== END 2018-01-22 13:24 | disposition home or self-care (01) ==
LOC: PC 13:23
PROVIDERS: ATTEND Nurse Practitioner
DX: Z51.5 Encounter for palliative care (principal); N18.6 End stage renal disease; Z99.2 Dependence on renal dialysis; J96.91 Respiratory failure, unspecified with hypoxia; Z99.81 Dependence on supplemental oxygen; I50.20 Unspecified systolic (congestive) heart failure; E11.9 Type 2 diabetes mellitus without complications; D63.1 Anemia in chronic kidney disease; Z87.891 Personal history of nicotine dependence; Z85.840 Personal history of malignant neoplasm of eye; Z90.01 Acquired absence of eye; Z79.82 Long term (current) use of aspirin
CPT/HCPCS: 99306

== ENCOUNTER → 2018-01-31 | Outpatient (CLI) | payer MEDICARE, OTHER | LOC: LAB.R 08:00 | DX: M18.9 Osteoarthritis of first carpometacarpal joint, unspecified (principal); E08.22 Diabetes mellitus due to underlying condition with diabetic chronic kidney disease | CPT/HCPCS: 81599; 82570; 84540 ==

== ENCOUNTER → 2018-01-31 | Outpatient (CLI) | payer MEDICARE, OTHER | LOC: LAB.R 08:00 | DX: Z53.9 Procedure and treatment not carried out, unspecified reason (principal) ==

== ENCOUNTER 2018-02-18 15:00 | Outpatient (CLI) | payer MEDICARE, OTHER ==
[2018-02-18 19:35] LABS: ALBUMIN 3.3 g/dL (3.2-5.5); ALBUMIN/GLOBULIN RATIO 1.1 (1.0-2.2); ALKALINE PHOSPHATASE 72 IU/L (42-121); ALT ALANINE AMINOTRANSFERASE 11 IU/L (10-60); AST ASPARTATE AMINOTRANSFERASE 18 IU/L (10-42); BILIRUBIN,TOTAL 0.6 mg/dL (0.2-1.0); BUN - BLOOD UREA NITROGEN 34 mg/dL (6-20); CALCIUM 8.1 mg/dL (8.5-10.3); CARBON DIOXIDE - CO2 28 mmol/L (21-32); CHLORIDE 102 mmol/L (101-111); CHOL/HDL RATIO 2.8 (<4.4); CHOLESTEROL 136 mg/dL; CREATININE 2.6 mg/dL (0.4-1.0); GFR - MDRD 18 (>89); GLUCOSE 148 mg/dL (70-100); HDL CHOLESTEROL 48 mg/dL; LDL CHOLESTEROL,CALCULATED 61 mg/dL; LDL/HDL RATIO 1.3 (<4.4); SODIUM 138 mmol/L (135-145); TOTAL PROTEIN 6.3 g/dL (6.7-8.2); VLDL CHOLESTEROL 27 mg/dL
[2018-02-18 19:36] LABS: HB2 TOTAL 13.3 g/dL; HEMOGLOBIN A1C 0.46 g/dL; HEMOGLOBIN A1C % 5.3 % (4.6-6.2)
== END 2018-02-18 15:01 ==
LOC: LAB.WCP 15:00
PROVIDERS: ATTEND Physician Assistant Medical
DX: E78.2 Mixed hyperlipidemia (principal); E11.9 Type 2 diabetes mellitus without complications
CPT/HCPCS: 36415; 80053; 80061; 83036; 83721

== ENCOUNTER 2018-03-04 21:17 | Outpatient (CLI) | payer MEDICARE, OTHER ==
--- NOTE | 2018-03-04 21:32 | CONSULTATION NOTE ---
Palliative Care Follow Up - Referral Referring Provider: JOAQUIN Moody Time of Visit: 03/04/2018. 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 She is now back living independently at home after hospitalization in December and rehabilitation in January. 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 -She was hospitalized at [facility] from December 17-2017 for severe mitral regurgitation and tricuspid regurgitation, renal failure on hemodialysis, anemia secondary to CKD, and possible pulmonary disease (history of smoking). -She went to [facility] for rehabilitation and was discharged home the beginning of February. -Now living independently at home and making progress. -She is bored and wants to return to work at least one day a week. -She is extremely thin but reports no weight loss, that she is between 105-110 lbs. -We did not weigh her today. I suspect she actually weighs under 100. -She finds her shortness of air is improving. She rarely uses her oxygen except at night, and occasionally during the day after periods of exertion. -She carefully navigates the steps and has to manage her energy and breathing -She has had a unsteady careful gait. -She reports a fall on her deck recently, with extensive bruising of R forearm but no pain or fracture. She fell while trying to reach her small dog. -Her PCP cleared her for driving a week ago, she is enjoying making some short trips into town, going shopping and taking walks on the beach with her dog. -Her first walk was 20 minutes, and she has increased the time for each walk. -She understands that she cannot drive to dialysis because she is quite fatigued after the sessions. She has been getting rides through the volunteer city driver program. -She has been working with Chelsie Cazares of [facility]: social worker aide, [email or web address]. -Her dialysis schedule has been reduced to twice a week, Mondays and Fridays. She is hopeful that she may eventually discontinue dialysis. -Her next nephrology appointment, Dr Hyatt, is March 09, and she has a cardiology consultation at [facility] sometime in the month of March. Social History - Living Situation Living arrangement: At home Living Situation: Alone Support System: Son Frederick lives in [place]. Son Jaspal lives in [place]. She appears to be close to both. She has neighbors who can help her and also a [employer] of friends she occasionally goes out with. Medications/Allergies - Medications Home Medications: Ambulatory Orders Medication Instructions Recorded Confirmed Amlodipine Besylate 5 mg PO DAILY 02/04/15 03/04/18 Aspirin [Aspirin EC] 81 mg PO DAILY 02/04/15 03/04/18 Atorvastatin Calcium 20 mg PO DAILY 02/04/15 03/04/18 Carvedilol 12.5 mg PO BID 02/04/15 03/04/18 Isosorbide Mononitrate [Isosorbide 60 mg PO DAILY 02/04/15 03/04/18 Mononitrate ER] Acetaminophen [Tylenol] 1 - 2 tab PO Q4H PRN 12/13/17 03/04/18 Torsemide 40 mg PO .QAM 12/13/17 03/04/18 Cholecalciferol (Vitamin D3) 5,000 unit PO DAILY 01/23/18 01/23/18 [Vitamin D3] Hydralazine HCl 25 mg PO TID 01/23/18 03/04/18 Torsemide 20 mg PO .QPM 03/04/18 03/04/18 - Allergies Allergies/Adverse Reactions: Allergies Allergy/AdvReac Type Severity Reaction Status Date / Time No Known Drug Allergies Allergy Verified 01/15/15 13:46 Review of Systems - Constitutional Constitutional: reports: Fatigue, Weight stable (Reports she is between 105 - 110 lbs, but she appears much thinner, could be under 100 lbs.) - Eyes Eyes: reports: Vision loss (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 exercise tolerance. denies: Palpitations, Chest pain, Edema, Lightheadedness, Syncope - Respiratory Respiratory: denies: Cough, SOB at rest (occasional), SOB with exertion - Gastrointestinal Gastrointestinal: denies: Constipation, Diarrhea, Poor appetite - Genitourinary Genitourinary: denies: Dysuria, Frequency, Incontinence - Musculoskeletal Musculoskeletal: denies: Muscle pain, Joint pain, Assistive devices, Transfer issues - Psychiatric Psychiatric: reports: Depression (During hospitalization, doing much better now) . denies: Suicidal - Hematologic/Lymphatic Hematologic/Lymphatic: reports: Bruising (bruises easily) Physical Exam - Vital Signs Temperature: 97.6 F Pulse Rate: 77 O2 Saturation: 96 Blood Pressure: 108/55 - Physical Exam General Appearance: positive: No acute distress, Alert Eyes Bilateral: positive: No lid inflammation, Conjunctivae nml, No scleral icterus, Other (L prosthetic eyeball) ENT: positive: Other (Recommended increasing fluid intake - due to low BP) Neck: positive: No JVD, Trachea midline. negative: Thyromegaly Cardiovascular: positive: Irregular, Systolic murmur Respiratory: positive: No respiratory distress, Diminished throughout, Rales ( crackles especially L base) Abdomen: positive: Abnml bowel sounds (hypocative) Skin: positive: Bruising (s/p recent fall), Other (Deeply tanned. May have hemosiderin staining of extremities) Extremities: positive: Nml appearance, No pedal edema Neurologic/Psychiatric: positive: Oriented x3, Mood/affect nml. negative: Facial droop Palliative Care - POLST Patient has POLST: No Pain: Comment (Pain in small toe, thinks she just fractured it after "stubbing" her toe) Tiredness/Fatigue: Mild (1-3) Drowsiness/Sedation: None Nausea: None Depression: None Anxiety: Mild (1-3) Dyspnea: Moderate (4-6) Anorexia: Weight loss (denies, but we didn't take weights) Constipation: No Performance Status: Lives by herself. Ambulates independently, but slower and more unsteadily since prior to her health crisis. She inctends to go back to work, at leat one day a week. Misses her colleagues and clients. - Palliative Care Discussion: She has shown good progress since rehabilitation at [facility]. She is able to navigate that stairs in her house by going very slowly. She did fall recently, fortunately without injury apart from large bruising of forearm. We discussed obtaining and [employer] and she agreed this is a good idea. Her son, Frederick lives in [place] and is available to help her. She believes both her sons (Jaspal lives in [place]) are her DPOAs, but she does not have the paperwork accessible. She had signed a POLST in December 2017, while in hospital, but it is incomplete and without physician signature. She had chosen CPR and selective treatment, no tube feeding. That POLST is not available. We discussed her advanced care planning, she does state she wants no prolongation of life. She asked to have time to consider the POLST and wants to speak with her sons. I left a blank copy for her, and we can follow up on next visit. Patient would like to continue follow up home visits, agreed to a schedule of about every 4-6 weeks. Impression and Recommendations - Palliative Care Impression: This is an independence and capable 77-year-old female with multiple serious comorbidities, including dialysis for end-stage CKD CKD, CHF, valvular disease, DM 2, pulmonary hypertension, chronic respiratory failure with hypoxia. She is back living independently at home after chcf at [facility]. She has recently started driving again but still requires volunteer drivers to get her to dialysis 2 times per week. Her goal is to return to work at least one day a week, she plans to start out slowly and carefully. She would benefit from continued monitoring and support by palliative care. Recommendations/Counseling Done: Constipation: Patient denies. Not on opioids. Monitor as needed. CKD on dialysis: Renal dialysis analysis has been decreased from 3/week to twice per week - Mondays and Fridays. She has a follow-up nephrology appointment March 15. Dr. Kent is her civil structural engineer. Spoke to her about senior services volunteer city driver program, and possible [employer] support through the dialysis clinic, for vouchers and other resources to get volunteer drivers. Chronic respiratory failure: Patient does not use oxygen continuously through the day, just for shortness of breath after exertion. She uses it at night, 2 L via nasal cannula. Recommended and demonstrated deep breathing periodically throughout the day Systolic CHF: SOB on exertion and fatigue. On amlodipine, and carvedilol; lisinopril is DC'd. Tonnage Compilation Clerk follow-up appointment sometime in March at [facility]. In the past she is seen Dr. Stark. Hypertension: BP 1 of , recommended increasing her fluid intake. Advanced care planning: No completed POLST. Left a blank POLST form with her at her request to discuss with her sons. She had previously half completed one as CPR and selective treatment, but never got obtained provider signature. Also no DPOA papers on file. Follow-up at next visit. Call to arrange f/u visit in 4-6 weeks. Time Spent: 60 minutes were spent with more than 50% of the time spent on counseling, education, and coordination of care.
== END 2018-03-04 21:18 | disposition home or self-care (01) ==
LOC: PC 21:17
PROVIDERS: ATTEND Nurse Practitioner
DX: Z51.5 Encounter for palliative care (principal); E11.22 Type 2 diabetes mellitus with diabetic chronic kidney disease; I13.2 Hypertensive heart and chronic kidney disease with heart failure and with stage 5 chronic kidney disease, or end stage renal disease; N18.6 End stage renal disease; I50.20 Unspecified systolic (congestive) heart failure; Z99.2 Dependence on renal dialysis; J96.91 Respiratory failure, unspecified with hypoxia; Z87.891 Personal history of nicotine dependence; Z79.82 Long term (current) use of aspirin; F41.9 Anxiety disorder, unspecified
CPT/HCPCS: 99350

== ENCOUNTER 2018-05-08 14:57 | Outpatient (CLI) | payer MEDICARE, OTHER ==
--- NOTE | 2018-05-08 18:13 | CONSULTATION NOTE ---
Palliative Care Follow Up - Referral Referring Provider: Isabel Steve PA-C Time of Visit: 05/08/2018. 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 She was hospitalized at [facility] from December 17-2017, for severe mitral and tricuspid regurgitation, renal failure on hemodialysis, anemia secondary to CKD, and possible pulmonary disease (history of smoking). She was at [facility] for rehabilitation in and discharged home in February 2018, and has been living independently at home since then. 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 -Patient has been doing very well since the previous palliative care visit in February. -She is back to work part-time, working partial days 2-3 days per week. 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 -She is able to take walks with her dog, but not on the beach, which is something she loves to do, due to fall hazards -She uses supplemental oxygen sporadically, usually in the afternoons when she is feeling fatigued. -Renal dialysis has decreased from 2x/week to 1x/week. -She had a consultation with Dr Kent in March and has another scheduled next Saturday. -Her labs from last week's dialysis were good. -They will run a 24 hour urine check this weekend. -Dr Kent, her prn occupational therapist, is considering stopping dialysis, since 1x/week "doesn't really do anything," and monitoring her. They can always restart it. -She cancelled her consulting group analyst appointment in March, due to the hassle and time required to get to [place]. -Dr Kent recommended her to a consulting group analyst whose name she can't recall, whom she will seeing in mid-May in [place] at the [facility]. -A volunteer continues to drive her to weekly dialysis sessions on Fridays. -Otherwise she drives herself everywhere and remains quite independent. -She has had some issues with her house recently (leaking water lines, burst hot water heater), and between her son who lives locally, and the neighbors, she was able to get the help she needed to get the repairs done. -Weight is stable, 107 lbs yesterday. Her normal range is 105-108 lbs. -She feels she is doing very well and no longer needs palliative care services. Social History - Living Situation Living arrangement: At home Living Situation: Alone Support System: Son Frederick lives in [facility], and son Jaspal lives in [place]. She appears to be close to both. Her son helps her out with her home, as do her neighbors. She had several recent issues around the house (leaking water line and ruptured hot water heater) that both her son and the neighbors helped with. She appears to have a social support network, including her colleagues at work, who are very helpful and supportive. Medications/Allergies - Medications Home Medications: Ambulatory Orders Medication Instructions Recorded Confirmed Amlodipine Besylate 5 mg PO DAILY 02/04/15 03/04/18 Aspirin [Aspirin EC] 81 mg PO DAILY 02/04/15 03/04/18 Atorvastatin Calcium 20 mg PO DAILY 02/04/15 03/04/18 Carvedilol 12.5 mg PO BID 02/04/15 03/04/18 Isosorbide Mononitrate [Isosorbide 60 mg PO DAILY 02/04/15 03/04/18 Mononitrate ER] Acetaminophen [Tylenol] 1 - 2 tab PO Q4H PRN 12/13/17 03/04/18 Torsemide 40 mg PO .QAM 12/13/17 03/04/18 Cholecalciferol (Vitamin D3) 5,000 unit PO DAILY 01/23/18 01/23/18 [Vitamin D3] Hydralazine HCl 25 mg PO TID 01/23/18 03/04/18 Torsemide 20 mg PO .QPM 03/04/18 03/04/18 - Allergies Allergies/Adverse Reactions: Allergies Allergy/AdvReac Type Severity Reaction Status Date / Time No Known Drug Allergies Allergy Verified 01/15/15 13:46 Review of Systems - Constitutional Constitutional: reports: Weight stable (Ranges from 105-108 lbs. Yesterday it was 107 lbs) - Ears, Nose & Throat Ears, Nose & Throat: reports: Hearing loss - Cardiovascular Cardiovascular: reports: Exertional dyspnea (occasional), Decr. exercise tolerance. denies: Chest pain - Respiratory Respiratory: reports: SOB with exertion (occasional). denies: Wheezing - Gastrointestinal Gastrointestinal: denies: Constipation, Change in bowel habits - Genitourinary Genitourinary: denies: Dysuria - Musculoskeletal Musculoskeletal: denies: Assistive devices, Transfer issues - Integumentary Integumentary: reports: Other (has a sun salmeron) - Psychiatric Psychiatric: denies: Depression - Hematologic/Lymphatic Hematologic/Lymphatic: reports: Bruising (easily bruises, is on aspirin) Physical Exam - Vital Signs Temperature: 96.0 F Pulse Rate: 68 O2 Saturation: 95 (room air) Blood Pressure: 129/62 - Physical Exam General Appearance: positive: No acute distress, Alert Eyes Bilateral: positive: EOMI, No lid inflammation, Conjunctivae nml, No scleral icterus, Other (L prosthetic eye) ENT: positive: ENT inspection nml Neck: positive: Trachea midline Respiratory: positive: No respiratory distress, Diminished in bases. negative: Wheezes, Rales Skin: positive: Bruising (on aspirin) Extremities: positive: No pedal edema Neurologic/Psychiatric: positive: Oriented x3, Mood/affect nml Palliative Care - POLST Patient has POLST: Yes POLST Status: DNR, Selective Treatment Feelings of wellbeing/Perceived Quality of Life: Worsening - Palliative Care Discussion: Patient had not yet spoken to her sons about her advanced care wishes nor about the POLST form. She says she knows it's there and she'll "do it" eventually. But by the end of the visit, since this is the last visit and she is discharing from Palliative Care, she decided to go ahead and fill it out now. She knows that she and her sons have a similar mindset on this. She wants DNR and is open to selective treatment, being hospitalized as she was previously. A very limited period on intubation is acceptable, what she doesn't want is any extended period on life support, no tube feeding. We filled out the POLST: DNR and selective treatment. 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 Her great regret is that she can no longer walk on the beach with her dog, Kirsty. She trips easily on [place] due to lack of depth perception. Impression and Recommendations - Palliative Care Impression: This is a 77-year-old female who was hospitalized in December for severe mitral regurgitation, renal failure on hemodialysis and possible pulmonary disease. She had a period of rehabilitation at [facility], was discharged home in February and has been getting better ever since. 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 Kent in nephrology, her dialysis is down to once a week and he is considering discharging her from dialysis altogether. Her life is back in order, and she feels at this time she has no further need of palliative care services. Recommendations/Counseling Done: CKD on dialysis: Renal dialysis currently once a week, on Fridays. She sees Dr Kent, prn occupational therapist, next week, he is considering stopping dialysis, monitoring her and restarting if indicated. Debility: Significant improvement: She continues to use the volunteer service to drive her to dialysis, otherwise she drives independently, she is working part-time, 2-3 days per week for partial days. She handles her own ADLs and IADLs, with son and neighbors who can help her with bigger tasks around the house. Chronic respiratory failure: Oxygen available as needed; she uses it mostly in the afternoon Systolic CHF: Occasional SOB on exertion and fatigue. She cancelled her [place] consulting group analyst appointment due to the inconvenience of traveling to [place]. She will be seeing a new consulting group analyst at [facility] in May. Advanced care planning: POLST completed, DNR and selective treatment, no tube feeding. She is open to selective treatment, being hospitalized as she was previously. A very limited period on intubation would be acceptable, what she doesn't want is any extended period on life support, and no tube feeding. She is stable, followed by her prn occupational therapist, will start seeing a new consulting group analyst, and she does not feel she requires palliative care at this time. She understands that the referral for palliative care is good for one year, and if she wants palliative care after that time period, a provider will need to refer her. She is discharged from palliative care Time Spent: 50 minutes were spent with more than 50% of the time spent on counseling, education, and coordination of care.
== END 2018-05-08 14:58 | disposition home or self-care (01) ==
LOC: PC 14:57
PROVIDERS: ATTEND Nurse Practitioner
DX: Z51.5 Encounter for palliative care (principal); E11.22 Type 2 diabetes mellitus with diabetic chronic kidney disease; I13.0 Hypertensive heart and chronic kidney disease with heart failure and stage 1 through stage 4 chronic kidney disease, or unspecified chronic kidney disease; N18.3 Chronic kidney disease, stage 3 (moderate); I50.20 Unspecified systolic (congestive) heart failure; Z99.2 Dependence on renal dialysis; Z87.891 Personal history of nicotine dependence; Z66 Do not resuscitate
CPT/HCPCS: 99349

== ENCOUNTER 2018-05-13 08:00 | Outpatient (CLI) | payer MEDICARE, OTHER ==
[2018-05-13 19:29] LABS: CREATININE,URINE 45.1 mg/dL
== END 2018-05-13 08:01 | disposition home or self-care (01) ==
LOC: LAB.WCP 08:00
PROVIDERS: ATTEND Internal Medicine Nephrology
DX: N05.9 Unspecified nephritic syndrome with unspecified morphologic changes (principal); N18.3 Chronic kidney disease, stage 3 (moderate)
CPT/HCPCS: 81599; 82570; 84156; 84540

== ENCOUNTER 2018-06-02 15:00 | Outpatient (CLI) | payer MEDICARE, OTHER ==
[2018-06-02 19:17] LABS: HB2 TOTAL 13.1 g/dL; HEMOGLOBIN A1C 0.43 g/dL; HEMOGLOBIN A1C % 5.2 % (4.6-6.2)
== END 2018-06-02 15:01 | disposition home or self-care (01) ==
LOC: LAB.WCP 15:00
PROVIDERS: ATTEND Physician Assistant Medical
DX: E11.9 Type 2 diabetes mellitus without complications (principal)
CPT/HCPCS: 36415; 83036

== ENCOUNTER 2018-12-31 18:40 | Outpatient (CLI) | payer MEDICARE, OTHER | END 2018-12-31 18:41 | disposition critical access hospital (66) | LOC: EMS 18:40 | PROVIDERS: ATTEND Surgery | DX: R06.02 Shortness of breath (principal); R11.2 Nausea with vomiting, unspecified | CPT/HCPCS: A0425; A0429 ==

== ENCOUNTER 2018-12-31 19:02 | Emergency (ER) | payer MEDICARE, OTHER ==
--- NOTE | 2018-12-31 19:23 | ED Physician Documentation ---
PD HPI DYSPNEA - Stated complaint Stated Complaint: SOA S/P DIALYSIS - Chief complaint Chief Complaint: Resp - History obtained from History obtained from: Patient, EMS - History of Present Illness Timing - onset: Other (History somewhat limited by memory difficulty. She had a few days of shortness of breath and nonproductive cough. She had dialysis today which did not improve her breathing. 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 HEENT: Other - Present Medications Home Medications: Ambulatory Orders Medication Instructions Recorded Confirmed Amlodipine Besylate 5 mg PO DAILY 02/04/15 03/04/18 Aspirin [Aspirin EC] 81 mg PO DAILY 02/04/15 03/04/18 Atorvastatin Calcium 20 mg PO DAILY 02/04/15 03/04/18 Carvedilol 12.5 mg PO BID 02/04/15 03/04/18 Isosorbide Mononitrate [Isosorbide 60 mg PO DAILY 02/04/15 03/04/18 Mononitrate ER] Acetaminophen [Tylenol] 1 - 2 tab PO Q4H PRN 12/13/17 03/04/18 Torsemide 40 mg PO .QAM 12/13/17 03/04/18 Cholecalciferol (Vitamin D3) 5,000 unit PO DAILY 01/23/18 01/23/18 [Vitamin D3] Hydralazine HCl 25 mg PO TID 01/23/18 03/04/18 Torsemide 20 mg PO .QPM 03/04/18 03/04/18 - Allergies Allergies/Adverse Reactions: Allergies Allergy/AdvReac Type Severity Reaction Status Date / Time No Known Drug Allergies Allergy Verified 12/31/18 19:11 - Social History Does the pt smoke?: No Smoking Status: Never smoker Does the pt drink ETOH?: Yes Does the pt have substance abuse?: No - Immunizations Immunizations are current?: Yes - POLST Patient has POLST: Yes PD ED PE NORMAL - Vitals Vital signs reviewed: Yes - General General: Other (She is alert oriented to person, knows she is in the hospital but is a poor historian. 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.) - Neck Neck: Supple, no meningeal sign, No bony TTP - Cardiac Cardiac: Other (Rapid regular heart rate with loud systolic murmur) - Respiratory Respiratory: Other (Slightly labored and tachypneic and decreased at the right base.) - Abdomen Abdomen: Soft, Non tender - Back Back: No CVA TTP, No spinal TTP - Derm Derm: Normal color, Warm and dry - Extremities Extremities: No edema, No calf tenderness / cord - Neuro Neuro: still runner 2-12 intact Eye Opening: Spontaneous Motor: Obeys Commands Verbal: Confused GCS Score: 14 Results - Vitals Vitals: Vital Signs - 24 hr 12/31/18 12/31/18 12/31/18 19:03 19:11 20:25 Temperature 36.6 C Heart Rate 102 H 95 Respiratory 18 28 H 16 Rate Blood Pressure 172/80 H 155/61 H O2 Saturation 97 97 12/31/18 12/31/18 20:34 20:59 Temperature Heart Rate 94 90 Respiratory 25 H 27 H Rate Blood Pressure 152/65 H 145/67 H O2 Saturation 96 95 Oxygen O2 Source Nasal cannula Oxygen Flow Rate 3 - EKG (time done) 1944 Rate: Rate (enter#) (97) Rhythm: NSR, LAE Intervals: RBBB QRS: LVH Ischemia: Non specific changes Compare to prior EKG: Changed from prior EKG (Compared with February 05, 2015 overall morphology is similar, slightly increased LVH/strain pattern.) Computer interpretation: Agree with computer - Labs Labs: Laboratory Tests 12/31/18 12/31/18 12/31/18 19:44 19:44 19:44 WBC 7.3 RBC 3.30 L Hgb 9.9 L Hct 31.1 L MCV 94.2 MCH 30.0 MCHC 31.9 L RDW 16.4 H Plt Count 204 MPV 8.5 Neut # (Auto) 6.2 Lymph # (Auto) 0.4 L [place] # (Auto) 0.5 Eos # (Auto) 0.1 Baso # (Auto) 0.1 Absolute Nucleated RBC 0.00 Nucleated RBC % 0.0 PT 12.9 H INR 1.1 VBG pH VBG pCO2 VBG pO2 VBG HCO3 VBG Total CO2 VBG O2 Saturation VBG Base Excess Sodium 137 Potassium 4.0 Chloride 99 L Carbon Dioxide 25 Anion Gap 13.0 BUN 31 H Creatinine 2.3 H Estimated GFR (MDRD) 20 L Glucose 129 H Lactic Acid Calcium 8.8 Total Bilirubin 0.8 AST 20 ALT 15 Alkaline Phosphatase 79 Total Creatine Kinase 33 CK-MB (CK-2) Troponin I Total Protein 6.2 L Albumin 3.2 Globulin 3.0 Albumin/Globulin Ratio 1.1 Lipase 34 12/31/18 12/31/18 12/31/18 19:44 19:44 19:44 WBC RBC Hgb Hct MCV MCH MCHC RDW Plt Count MPV Neut # (Auto) Lymph # (Auto) [place] # (Auto) Eos # (Auto) Baso # (Auto) Absolute Nucleated RBC Nucleated RBC % PT INR VBG pH 7.355 VBG pCO2 46.4 VBG pO2 51.6 H VBG HCO3 25.3 VBG Total CO2 26.8 VBG O2 Saturation 85.3 H VBG Base Excess -0.4 Sodium Potassium Chloride Carbon Dioxide Anion Gap BUN Creatinine Estimated GFR (MDRD) Glucose Lactic Acid 0.5 Calcium Total Bilirubin AST ALT Alkaline Phosphatase Total Creatine Kinase CK-MB (CK-2) 4.7 Troponin I < 0.04 Total Protein Albumin Globulin Albumin/Globulin Ratio Lipase - Rads (name of study) 1v chest Radiology: EMP read contemporaneously (Consistent with CHF and possibly a left basilar infiltrate.) PD MEDICAL DECISION MAKING - ED course ED course: This is an 78-year-old woman who presents acutely confused and short of breath. She is a dialysis patient with known valvular heart disease and was not a candidate for a mitral valve clip previously. She has a loud murmur and evidence of CHF on exam without evidence of peripheral hypervolemia. She is hypertensive and was started on a nitroglycerin drip and Lasix. I spoke with Dr. 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 She was accepted to [facility] under the care of Dr. Tricia Morgan whom I spoke with personally. Cobras were completed. She will go to the floor there so the nitro drip was stopped and replaced with Nitropaste. Departure - Departure Disposition: 02 Transfer Acute Care Hosp Clinical Impression: Congestive heart failure, Valvular cardiomyopathy Mitral regurgitation Qualifiers: Cardiac valve disease etiology: nonrheumatic Qualified Code(s): I34.0 - Nonrheumatic mitral (valve) insufficiency DM w/o complication type II Qualifiers: Diabetes mellitus manager long term care insulin use: without manager long term care use Qualified Code(s): E11.9 - Type 2 diabetes mellitus without complications Pulmonary edema Qualifiers: Chronicity: acute Qualified Code(s): J81.0 - Acute pulmonary edema Renal failure Qualifiers: Renal failure chronicity: chronic Chronic kidney disease stage: on chronic dialysis Qualified Code(s): N18.6 - End stage renal disease; Z99.2 - Dependence on renal dialysis Pneumonia Qualifiers: Pneumonia type: due to unspecified organism Laterality: left Lung location: lower lobe of lung Qualified Code(s): J18.1 - Lobar pneumonia, unspecified organism Condition: Serious
[2018-12-31 19:53] LABS: VBG BASE EXCESS -0.4 mmol/L (-2 - +2); VBG PCO2 46.4 mmHg (41-51); VBG PH 7.355 (7.31-7.41); VBG PO2 51.6 mmHg (25-47); VBG TOTAL CO2 26.8 mmol/L (24-29)
[2018-12-31 19:54] LABS: BASOPHILS # (AUTO) 0.1 10^3/uL (0.0-0.1); EOSINOPHILS # (AUTO) 0.1 10^3/uL (0.0-0.7); EOSINOPHILS % (AUTO) 1.8 %; HGB - HEMOGLOBIN 9.9 g/dL (12.0-16.0); LYMPHOCYTES # (AUTO) 0.4 10^3/uL (1.5-3.5); LYMPHOCYTES % (AUTO) 5.1 %; MEAN CORPUSCULAR HGB CONC 31.9 g/dL (32.0-36.0); MEAN CORPUSCULAR VOLUME 94.2 fL (81.0-99.0); MEAN PLATELET VOLUME 8.5 fL (7.9-10.8); MONOCYTES # (AUTO) 0.5 10^3/uL (0.0-1.0); MONOCYTES % (AUTO) 7.1 %; NEUTROPHILS # (AUTO) 6.2 10^3/uL (1.5-6.6); PLT - PLATELET COUNT 204 10^3/uL (130-450); RED CELL DISTRIBUTION WIDTH 16.4 % (12.0-15.0); WHITE BLOOD COUNT 7.3 x10^3/uL (4.8-10.8)
--- NOTE | 2018-12-31 20:01 | XRAY Report ---
Reason: dyspnea, decreased BS R base Procedure Date: 12/31/2018 Accession Number: [id number] / [id number] Procedure: XR - Chest 1 View X-Ray CPT Code: 35050 FULL RESULT: EXAM: CHEST RADIOGRAPHY EXAM DATE: 12/31/2018 07:47 PM. CLINICAL HISTORY: Dyspnea, decreased BS R base. COMPARISON: CHEST 2 VIEW 10/16/2017 10:18 PM. TECHNIQUE: 1 view. FINDINGS: Lungs/Pleura: Increased hazy prominence of lung markings with septal lines. Small pleural effusions, left more than right. Localized added density in the left base. No consolidation or pneumothorax. Mediastinum: Moderate cardiomegaly, probably unchanged. Diffuse vascular fullness. Other: Right central line tip in the atrium about 8.1 cm is below level of trae. IMPRESSION: 1. Congestive failure. 2. Possible localized infiltrate in left base. RADIA
[2018-12-31 20:02] LABS: INR 1.1 (0.8-1.2); PT - PROTHROMBIN TIME 12.9 secs (9.9-12.6)
[2018-12-31] MEDS ORDERED: NITROGLYCERIN 50 MG/250 ML 50 MG/250 ML BOTTLE IV STA (20:05)
[2018-12-31] MEDS ORDERED: levoFLOXacin 500 MG/100 ML 500 MG/100 ML BAG IV ONE (20:05)
[2018-12-31] MEDS ORDERED: FUROSEMIDE 100 MG/10 ML VIAL IVP STA (20:05)
[2018-12-31 20:09] LABS: ALBUMIN 3.2 g/dL (3.2-5.5); ALBUMIN/GLOBULIN RATIO 1.1 (1.0-2.2); BILIRUBIN,TOTAL 0.8 mg/dL (0.2-1.0); CALCIUM 8.8 mg/dL (8.5-10.3); CREATININE 2.3 mg/dL (0.4-1.0); TOTAL PROTEIN 6.2 g/dL (6.7-8.2)
[2018-12-31 20:14] LABS: TROPONIN I < 0.04 ng/mL (<0.49)
[2018-12-31 20:16] LABS: CREATINE KINASE MB 4.7 ng/mL (0.6-6.3)
[2018-12-31] MEDS ORDERED: NITROGLYCERIN 2% PASTE TOP STA (21:01)
[2018-12-31 22:41] VITALS: BP 141/57
== END 2018-12-31 22:56 | disposition short-term general hospital (02) ==
LOC: EDUNIT# → ED 19:02
DX: I13.0 Hypertensive heart and chronic kidney disease with heart failure and stage 1 through stage 4 chronic kidney disease, or unspecified chronic kidney disease (principal); E11.22 Type 2 diabetes mellitus with diabetic chronic kidney disease; N18.9 Chronic kidney disease, unspecified; I50.9 Heart failure, unspecified; I42.9 Cardiomyopathy, unspecified; I34.0 Nonrheumatic mitral (valve) insufficiency; J81.0 Acute pulmonary edema; J18.1 Lobar pneumonia, unspecified organism; Z99.2 Dependence on renal dialysis
CPT/HCPCS: 36415; 71045; 80053; 82550; 82553; 82803; 83605; 83690; 84484; 85025; 85610; 87040; 93005; 96365; 96367; 96375; 99284; 99285; A9270; J1940

== ENCOUNTER 2019-01-12 08:00 | Outpatient (CLI) | payer MEDICARE, OTHER ==
[2019-01-12 20:13] LABS: CALCIUM 9.1 mg/dL (8.5-10.3)
== END 2019-01-12 08:01 | disposition home or self-care (01) ==
LOC: LAB.WCP 08:00
PROVIDERS: ATTEND Physician Assistant Medical
DX: N18.3 Chronic kidney disease, stage 3 (moderate) (principal)
CPT/HCPCS: 36415; 80048

== ENCOUNTER 2019-01-28 18:46 | Outpatient (CLI) | payer MEDICARE, OTHER | END 2019-01-28 18:47 | disposition critical access hospital (66) | LOC: EMS 18:46 | PROVIDERS: ATTEND Surgery | DX: R42 Dizziness and giddiness (principal); Z99.2 Dependence on renal dialysis | CPT/HCPCS: A0425; A0427 ==

== ENCOUNTER 2019-01-28 19:10 | Emergency (ER) | payer MEDICARE, OTHER ==
--- NOTE | 2019-01-28 19:23 | ED Physician Documentation ---
History of Present Illness - Stated complaint Stated Complaint: DIZZY - Chief complaint Chief Complaint: Resp - History obtained from History obtained from: Patient, EMS - History of Present Illness Timing: Today (She was at dialysis today and afterwards started to complain of dizziness. She says it is mostly gone now. Hard for her to describe, she endorses both spinning and lightheadedness. It started after getting up. There is no associated shortness of breath or chest pain. She was hypoxic for EMS but I do not think that is necessarily new as she wears oxygen at home at times.) Review of Systems Cardiac: denies: Chest pain / pressure, Palpitations Respiratory: denies: Dyspnea, Cough GI: denies: Abdominal Pain, Nausea, Vomiting, Diarrhea, Bloody / black stool PD PAST MEDICAL HISTORY - Past Medical History Cardiovascular: Congestive heart failure, Hypertension, High cholesterol, Valve disorder Respiratory: Pneumonia Endocrine/Autoimmune: Type 2 diabetes, HyPERthyroidism GI: None, Colon polyps : None, Renal insuffiency HEENT: Chronic vision loss, Other Psych: Depression, Anxiety, Panic attacks Musculoskeletal: Osteoarthritis, Gout, Fatigue Derm: Other - Past Surgical History 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: Other - Present Medications Home Medications: Ambulatory Orders Medication Instructions Recorded Confirmed Aspirin [Aspirin EC] 81 mg PO DAILY 02/04/15 03/04/18 Isosorbide Mononitrate [Isosorbide 60 mg PO DAILY 02/04/15 03/04/18 Mononitrate ER] RX: Amlodipine Besylate 5 mg PO DAILY 02/04/15 03/04/18 RX: Atorvastatin Calcium 20 mg PO DAILY 02/04/15 03/04/18 RX: Carvedilol 12.5 mg PO BID 02/04/15 03/04/18 Acetaminophen [Tylenol] 1 - 2 tab PO Q4H PRN 12/13/17 03/04/18 RX: Torsemide 40 mg PO .QAM 12/13/17 03/04/18 Cholecalciferol (Vitamin D3) 5,000 unit PO DAILY 01/23/18 01/23/18 [Vitamin D3] RX: Hydralazine HCl 25 mg PO TID 01/23/18 03/04/18 RX: Torsemide 20 mg PO .QPM 03/04/18 03/04/18 - Allergies Allergies/Adverse Reactions: Allergies Allergy/AdvReac Type Severity Reaction Status Date / Time No Known Drug Allergies Allergy Verified 01/28/19 19:14 - Social History Does the pt smoke?: No Smoking Status: Never smoker Does the pt drink ETOH?: Yes Does the pt have substance abuse?: No - Immunizations Immunizations are current?: Yes - POLST Patient has POLST: Yes PD ED PE NORMAL - Vitals Vital signs reviewed: Yes - General General: Alert and oriented X 3, No acute distress - Cardiac Cardiac: RRR, Other (Loud systolic murmur similar in character to what I documented from last month.) - Respiratory Respiratory: No respiratory distress, Clear bilaterally - Abdomen Abdomen: Non tender - Extremities Extremities: Other (Skinny ankles) - Neuro Neuro: Alert and oriented X 3 (Does not know the date but knows the month and the year) Results - Vitals Vitals: Vital Signs - 24 hr 01/28/19 01/28/19 19:09 20:38 Temperature 36.5 C Heart Rate 90 85 Respiratory 14 25 H Rate Blood Pressure 138/66 H 161/60 H O2 Saturation 94 96 Oxygen O2 Source Nasal cannula Oxygen Flow Rate 2 - EKG (time done) 192 Rate: Rate (enter#) (86) Rhythm: NSR, LAE Intervals: RBBB QRS: LVH Ischemia: Non specific changes (Strain pattern consistent with LVH, no change from December 31, 2018.) - Labs Labs: Laboratory Tests 01/28/19 01/28/19 01/28/19 19:25 19:25 19:25 WBC 5.3 RBC 2.78 L Hgb 8.4 L Hct 26.8 L MCV 96.6 MCH 30.1 MCHC 31.1 L RDW 19.2 H Plt Count 221 MPV 8.2 Neut # (Auto) 3.9 Lymph # (Auto) 0.7 L [place] # (Auto) 0.5 Eos # (Auto) 0.2 Baso # (Auto) 0.0 Absolute Nucleated RBC 0.03 Band Neuts % (Manual) Not Reportable Abnorm Lymph % (Manual) Not Reportable Nucleated RBC % 0.5 Neutrophils # (Manual) Not Reportable Lymphocytes # (Manual) Not Reportable Monocytes # (Manual) Not Reportable Eosinophils # (Manual) Not Reportable Basophils # (Manual) Not Reportable Differential Comment MANUAL=AUTO DIFF Manual Slide Review Indicated Platelet Estimate NORMAL (130-450,000) Platelet Morphology NORMAL APPEARANCE RBC Morph Micro Appear 1+ BASO STIPPLING Sodium 138 Potassium 3.4 L Chloride 102 Carbon Dioxide 27 Anion Gap 9.0 BUN 22 H Creatinine 1.9 H Estimated GFR (MDRD) 25 L Glucose 218 H Calcium 9.0 Total Bilirubin 0.6 AST 18 ALT 16 Alkaline Phosphatase 69 Troponin I 0.04 Total Protein 5.9 L Albumin 3.3 Globulin 2.6 Albumin/Globulin Ratio 1.3 Lipase 44 PD MEDICAL DECISION MAKING - ED course ED course: This is an 78-year-old woman who presents from dialysis the poorly described episode of resolved dizziness. She feels fine here. Lab work noted, mildly worse anemia than normal, but everything else seems stable. Son arrived. I discussed with him that I am a little worried about her driving in the long-term and she seems to have worsening memory. Departure - Departure Disposition: 01 Home, Self Care Clinical Impression: Congestive heart failure, Valvular cardiomyopathy, Dizzy, Anemia in chronic kidney disease Condition: Good Instructions: ED Dizziness UKO Comments: Call your doctor to arrange a follow-up appointment, make the next available appointment. In the interim, return anytime if worse or if new symptoms develop. Discharge Date/Time: 01/28/19 20:59
[2019-01-28 19:31] LABS: BASOPHILS % (AUTO) 0.8 %; EOSINOPHILS # (AUTO) 0.2 10^3/uL (0.0-0.7); EOSINOPHILS % (AUTO) 3.1 %; LYMPHOCYTES # (AUTO) 0.7 10^3/uL (1.5-3.5); WHITE BLOOD COUNT 5.3 x10^3/uL (4.8-10.8)
[2019-01-28 19:42] LABS: ALBUMIN 3.3 g/dL (3.2-5.5); ALBUMIN/GLOBULIN RATIO 1.3 (1.0-2.2); BILIRUBIN,TOTAL 0.6 mg/dL (0.2-1.0); CREATININE 1.9 mg/dL (0.4-1.0); TOTAL PROTEIN 5.9 g/dL (6.7-8.2)
[2019-01-28 19:49] LABS: HGB - HEMOGLOBIN 8.4 g/dL (12.0-16.0); LYMPHOCYTES % (AUTO) 13.4 %; MEAN CORPUSCULAR HEMOGLOBIN 30.1 pg (27.0-31.0); MEAN CORPUSCULAR HGB CONC 31.1 g/dL (32.0-36.0); MEAN CORPUSCULAR VOLUME 96.6 fL (81.0-99.0); MEAN PLATELET VOLUME 8.2 fL (7.9-10.8); MONOCYTES # (AUTO) 0.5 10^3/uL (0.0-1.0); MONOCYTES % (AUTO) 8.7 %; NEUTROPHILS # (AUTO) 3.9 10^3/uL (1.5-6.6); PLT - PLATELET COUNT 221 10^3/uL (130-450); RED BLOOD COUNT 2.78 10^6/uL (4.20-5.40); RED CELL DISTRIBUTION WIDTH 19.2 % (12.0-15.0)
--- NOTE | 2019-01-28 19:51 | XRAY Report ---
Reason: dizzy Procedure Date: 01/28/2019 Accession Number: [id number] / [id number] Procedure: XR - Chest 1 View X-Ray CPT Code: 81627 FULL RESULT: EXAM: CHEST RADIOGRAPHY EXAM DATE: 01/28/2019 07:39 PM. CLINICAL HISTORY: Dizziness and giddiness. COMPARISON: CHEST 1 VIEW 12/31/2018 7:24 PM. TECHNIQUE: 1 view. FINDINGS: Lungs/Pleura: Minimal to mild bilateral pleural effusions are seen, left side greater than right side. Borderline pulmonary vascular congestion/edema is seen. Mediastinum: Heart and mediastinal contours are notable for aortic calcification. Cardiac silhouette is mildly enlarged. Other: Right sided central line terminates in the right atrium. IMPRESSION: 1. Borderline CHF/fluid overload. 2. Minimal to mild bilateral pleural effusions. RADIA
[2019-01-28 20:19] LABS: PLATELET ESTIMATE, MANUAL NORMAL (130-450,000) (NORMAL); PLATELET MORPHOLOGY NORMAL APPEARANCE (NORMAL)
[2019-01-28 20:20] LABS: DIFFERENTIAL COMMENT MANUAL=AUTO DIFF
[2019-01-28 20:38] VITALS: BP 161/60
== END 2019-01-28 20:59 | disposition home or self-care (01) ==
LOC: EDUNIT# → ED 19:10
DX: I13.0 Hypertensive heart and chronic kidney disease with heart failure and stage 1 through stage 4 chronic kidney disease, or unspecified chronic kidney disease (principal); I50.9 Heart failure, unspecified; E11.22 Type 2 diabetes mellitus with diabetic chronic kidney disease; N18.9 Chronic kidney disease, unspecified; D63.1 Anemia in chronic kidney disease; R42 Dizziness and giddiness; I43 Cardiomyopathy in diseases classified elsewhere; I45.10 Unspecified right bundle-branch block; Z79.82 Long term (current) use of aspirin
CPT/HCPCS: 36415; 71045; 80053; 83690; 84484; 85025; 93005; 99283

== ENCOUNTER 2019-03-26 08:00 | Outpatient (CLI) | payer MEDICARE, OTHER ==
[2019-03-26 18:59] LABS: BASOPHILS % (AUTO) 0.4 %; EOSINOPHILS # (AUTO) 0.2 10^3/uL (0.0-0.7); EOSINOPHILS % (AUTO) 2.2 %; HGB - HEMOGLOBIN 9.4 g/dL (12.0-16.0); LYMPHOCYTES # (AUTO) 0.6 10^3/uL (1.5-3.5); LYMPHOCYTES % (AUTO) 8.4 %; MEAN CORPUSCULAR HEMOGLOBIN 31.5 pg (27.0-31.0); MEAN CORPUSCULAR VOLUME 112.8 fL (81.0-99.0); MEAN PLATELET VOLUME 10.9 fL (7.9-10.8); MONOCYTES # (AUTO) 0.8 10^3/uL (0.0-1.0); MONOCYTES % (AUTO) 10.3 %; NEUTROPHILS % (AUTO) 77.9 %; PLT - PLATELET COUNT 199 10^3/uL (130-450); RED BLOOD COUNT 2.98 10^6/uL (4.20-5.40); RED CELL DISTRIBUTION WIDTH 17.1 % (12.0-15.0); WHITE BLOOD COUNT 7.6 x10^3/uL (4.8-10.8)
[2019-03-26 19:27] LABS: % IRON SATURATION 19 % (20-50); IRON 27 ug/dL (28-170); TOTAL IRON BINDING CAPACITY 143 ug/dL (250-450); TRANSFERRIN 102 mg/dL (192-382)
[2019-03-26 19:29] LABS: FERRITIN 411.6 ng/mL (11.0-306.8)
[2019-03-26 19:33] LABS: FOLATE 15.4 ng/mL (5.90 - >24.8)
[2019-03-26 21:14] LABS: PLATELET ESTIMATE, MANUAL NORMAL (130-450,000) (NORMAL); PLATELET MORPHOLOGY NORMAL APPEARANCE (NORMAL)
== END 2019-03-26 23:59 | disposition home or self-care (01) ==
LOC: LAB.WCP 08:00
PROVIDERS: ATTEND Physician Assistant Medical
DX: D64.9 Anemia, unspecified (principal)
CPT/HCPCS: 36415; 82607; 82728; 82746; 83540; 84466; 85025

== ENCOUNTER 2019-04-12 21:11 | Emergency (ER) | payer MEDICARE, OTHER ==
[2019-04-12] MEDS ORDERED: HYDROcod/ACETAM 5/325 MG TABLET PO STA (21:34)
--- NOTE | 2019-04-12 21:40 | ED Physician Documentation ---
PD HPI LOWER EXT INJURY - Stated complaint Stated Complaint: SOA/R LEG WOUND - Chief complaint Chief Complaint: Ext Problem - History obtained from History obtained from: Patient - History of Present Illness PD HPI LOW EXT INJURY LOCATION: Right, Lower leg Type of injury: Blunt / blow Where injury occurred: Home Timing - onset: How many days ago (4) Worsened by: Palpating Associated symptoms: Swelling, Discolored - Additional information Additional information: The patient is an 78-year-old female with a history of oxygen dependent COPD, congestive heart failure, and chronic renal failure on dialysis, who presents with right lower leg pain. She banged her mae against the open price analyst door 4 days ago. She has had increased swelling and pain of her lower leg since that time. She is concerned about the possibility of infection, stating that 2 years ago she had a serious infection in her same leg after a similar incident, requiring hospitalization for IV antibiotics. Review of Systems Constitutional: denies: Fever Nose: denies: Congestion Throat: denies: Sore throat Cardiac: denies: Chest pain / pressure Respiratory: reports: Dyspnea (chronically). 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 : None, Renal insuffiency HEENT: Chronic vision loss, Other Psych: Depression, Anxiety, Panic attacks Musculoskeletal: Osteoarthritis, Gout, Fatigue Derm: Other - Past Surgical History 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 HEENT: Other - Present Medications Home Medications: Ambulatory Orders Medication Instructions Recorded Confirmed Aspirin [Aspirin EC] 81 mg PO DAILY 02/04/15 02/05/19 Atorvastatin Calcium 20 mg PO DAILY 02/04/15 02/05/19 Carvedilol 12.5 mg PO BID 02/04/15 02/05/19 Isosorbide Mononitrate [Isosorbide 60 mg PO DAILY 02/04/15 02/05/19 Mononitrate ER] Acetaminophen [Tylenol] 1 - 2 tab PO Q4H PRN 04/06/18 05/30/19 Torsemide 40 mg PO .QAM 12/13/17 02/05/19 Cholecalciferol (Vitamin D3) 5,000 unit PO DAILY 01/23/18 02/05/19 [Vitamin D3] Hydralazine HCl 25 mg PO TID 01/23/18 02/05/19 Torsemide 20 mg PO .QPM 03/04/18 02/05/19 Hydrocodone/Acetaminophen 1 - 2 each PO Q6H PRN #14 tablet 04/12/19 [Hydrocodon-Acetaminophen 5-325] - Allergies Allergies/Adverse Reactions: Allergies Allergy/AdvReac Type Severity Reaction Status Date / Time No Known Drug Allergies Allergy Verified 04/12/19 21:22 - Social History Does the pt smoke?: No Smoking Status: Never smoker Does the pt drink ETOH?: Yes Does the pt have substance abuse?: No - Immunizations Immunizations are current?: Yes - POLST Patient has POLST: Yes PD ED PE NORMAL - Vitals Vital signs reviewed: Yes (systolic hypertension) - General General: Alert and oriented X 3, Well developed/nourished - HEENT HEENT: Atraumatic - Neck Neck: Supple, no meningeal sign - Cardiac Cardiac: RRR, Other (III/ harsh) - Respiratory Respiratory: Clear bilaterally - Abdomen Abdomen: Soft, Non tender - Derm Derm: No rash - Extremities Extremities: Other (There is ecchymosis over the anterior aspect of the right lower leg, with associated edema, and tenderness to palpation. There is a bleb on the lateral aspect measuring 1 x 3 cm in size. There is no warmth or violace ous erythema. Distal neurovascular is intact.) - Neuro Neuro: Alert and oriented X 3, No motor deficit, Normal speech Results - Vitals Vitals: Vital Signs - 24 hr 04/12/19 04/12/19 04/12/19 21:15 21:23 23:22 Temperature 37.0 C Heart Rate 87 80 Respiratory 24 18 Rate Blood Pressure 167/83 H 131/50 H O2 Saturation 86 L 95 97 Oxygen O2 Source Room air Oxygen Flow Rate 3 - Labs Labs: Laboratory Tests 04/12/19 04/12/19 04/12/19 21:43 21:43 21:43 WBC 13.6 H RBC 2.99 L Hgb 9.1 L Hct 32.0 L MCV 107.0 H MCH 30.4 MCHC 28.4 L RDW 15.8 H Plt Count 191 MPV 10.1 Neut # (Auto) 11.5 H Lymph # (Auto) 0.5 L [place] # (Auto) 1.3 H Eos # (Auto) 0.3 Baso # (Auto) 0.0 Absolute Nucleated RBC 0.00 Nucleated RBC % 0.0 Manual Slide Review Indicated Platelet Estimate NORMAL (130-450,000) Platelet Morphology NORMAL APPEARANCE RBC Morph Micro Appear 1+ SCHISTOCYTES Sodium 142 Potassium 5.8 H Chloride 104 Carbon Dioxide 23 Anion Gap 15.0 H BUN 70 H Creatinine 5.7 H Estimated GFR (MDRD) 7 L Glucose 110 H Calcium 8.8 Total Bilirubin 0.6 AST 16 ALT 14 Alkaline Phosphatase 65 B-Natriuretic Peptide 5597.00 H Total Protein 6.2 L Albumin 3.3 Globulin 2.9 Albumin/Globulin Ratio 1.1 Lipase 47 - Rads (name of study) Venous duplex right leg Radiology: Prelim report reviewed, EMP read contemporaneously, See rad report (No evidence for DVT. Calf veins are somewhat suboptimally seen due to extensive edema. Small popliteal fossa cyst again seen.) PD MEDICAL DECISION MAKING - ED course Complexity details: reviewed old records, reviewed results, re-evaluated patient, considered differential, d/w patient ED course: The patient's presentation is significant for contusion to her right lower leg, with associated ecchymosis and edema. Ultrasound of the right lower extremity reveals no evidence of DVT. There is no evidence of cellulitis on physical examination. Her laboratory analysis is significant for elevated BUN and creati nine of 70 and 5.7. Her potassium is slightly elevated at 5.8. She is scheduled for dialysis tomorrow morning. I discussed with her the results of the ultrasound, symptomatic treatment, outpatient follow-up, including dialysis, as well as potentially worrisome signs or symptoms duration in the emergency department. Departure - Departure Disposition: 01 Home, Self Care Clinical Impression: Peripheral edema Pain of lower extremity Qualifiers: Laterality: right Qualified Code(s): M79.604 - Pain in right leg Contusion of right leg Qualifiers: Encounter type: initial encounter Qualified Code(s): S80.11XA - Contusion of right lower leg, initial encounter Chronic renal failure Qualifiers: Chronic kidney disease stage: unspecified stage Qualified Code(s): N18.9 - Chronic kidney disease, unspecified Condition: Stable Instructions: ED Contusion Lower Ext Follow-Up: Isabel Steve PA-C [Primary Care Provider] - Prescriptions: Hydrocodone/Acetaminophen [Hydrocodon-Acetaminophen 5-325] 1 - 2 each PO Q6H PRN #14 tablet PRN Reason: pain Comments: Keep your right leg elevated as much of the time as possible. You can use Vicodin as prescribed if needed for pain. Follow-up for dialysis tomorrow as planned. Follow-up with your primary physician or return to the emergency department if you develop increasing pain or swelling of your leg, or otherwise worsening symptoms. Discharge Date/Time: 04/12/19 23:54
[2019-04-12 21:48] LABS: BASOPHILS % (AUTO) 0.2 %; EOSINOPHILS # (AUTO) 0.3 10^3/uL (0.0-0.7); EOSINOPHILS % (AUTO) 1.8 %; HGB - HEMOGLOBIN 9.1 g/dL (12.0-16.0); LYMPHOCYTES # (AUTO) 0.5 10^3/uL (1.5-3.5); LYMPHOCYTES % (AUTO) 3.4 %; MEAN CORPUSCULAR HEMOGLOBIN 30.4 pg (27.0-31.0); MEAN CORPUSCULAR HGB CONC 28.4 g/dL (32.0-36.0); MEAN PLATELET VOLUME 10.1 fL (7.9-10.8); MONOCYTES # (AUTO) 1.3 10^3/uL (0.0-1.0); MONOCYTES % (AUTO) 9.8 %; NEUTROPHILS # (AUTO) 11.5 10^3/uL (1.5-6.6); NEUTROPHILS % (AUTO) 84.3 %; PLT - PLATELET COUNT 191 10^3/uL (130-450); RED BLOOD COUNT 2.99 10^6/uL (4.20-5.40); RED CELL DISTRIBUTION WIDTH 15.8 % (12.0-15.0); WHITE BLOOD COUNT 13.6 x10^3/uL (4.8-10.8)
[2019-04-12 22:03] LABS: ALBUMIN 3.3 g/dL (3.2-5.5); ALBUMIN/GLOBULIN RATIO 1.1 (1.0-2.2); BILIRUBIN,TOTAL 0.6 mg/dL (0.2-1.0); CALCIUM 8.8 mg/dL (8.5-10.3); CREATININE 5.7 mg/dL (0.4-1.0); TOTAL PROTEIN 6.2 g/dL (6.7-8.2)
[2019-04-12 22:08] LABS: PLATELET ESTIMATE, MANUAL NORMAL (130-450,000) (NORMAL); PLATELET MORPHOLOGY NORMAL APPEARANCE (NORMAL)
--- NOTE | 2019-04-12 23:26 | Ultrasound Report ---
Reason: swelling, pain right lower leg, post injury. Procedure Date: 04/12/2019 Accession Number: [id number] / [id number] Procedure: US - Duplex Ext Veins Right CPT Code: FULL RESULT: EXAM: RIGHT LOWER EXTREMITY VENOUS ULTRASOUND EXAM DATE: 04/12/2019 10:16 PM. CLINICAL HISTORY: Swelling, pain right lower leg, post injury. COMPARISON: DUPLEX EXT VEINS RIGHT 10/16/2017 9:46 PM. TECHNIQUE: Real-time sonographic vascular imaging was performed by the deck builder through the lower extremity utilizing both color-flow and Doppler spectral analysis. Multiple retail service representative static images were saved for review. FINDINGS: Common Femoral Vein (CFV): Normal. CFV-GSV Junction: Normal. Profunda Femoral Vein (PFV): Normal. Femoral Vein (FV) Prox: Normal. Femoral Vein (FV) Mid: Normal. Femoral Vein (FV) Dist: Normal. Popliteal Vein: Normal. Posterior Tibial Veins: Normal. Suboptimally seen due to edema. Peroneal Veins: Normal. Suboptimally seen due to edema. Other: Small popliteal fossa cyst again seen measuring 1.9 x 1.0 cm. Extensive subcutaneous edema. IMPRESSION: 1. No evidence for deep venous thrombosis. 2. Calf veins are somewhat suboptimally seen due to extensive edema. 3. Small popliteal fossa cyst again seen. RADIA
[2019-04-12] MEDS ORDERED: oxyCODONE/ACET 5/325 Prepack 4 PO STA (23:36)
[2019-04-12 23:53] VITALS: BP 131/50
== END 2019-04-12 23:54 | disposition home or self-care (01) ==
LOC: ED 21:11
DX: S80.11XA Contusion of right lower leg, initial encounter (principal); R60.0 Localized edema; E11.22 Type 2 diabetes mellitus with diabetic chronic kidney disease; N18.6 End stage renal disease; I12.0 Hypertensive chronic kidney disease with stage 5 chronic kidney disease or end stage renal disease; J44.9 Chronic obstructive pulmonary disease, unspecified; Z99.81 Dependence on supplemental oxygen; Z99.2 Dependence on renal dialysis; W22.09XA Striking against other stationary object, initial encounter; Y92.009 Unspecified place in unspecified non-institutional (private) residence as the place of occurrence of the external cause
CPT/HCPCS: 36415; 80053; 83690; 83880; 85025; 93971; 99284; A9270

== ENCOUNTER 2019-04-26 08:00 | Outpatient (CLI) | payer MEDICARE, OTHER ==
[2019-04-26 12:10] LABS: BASOPHILS % (AUTO) 0.2 %; EOSINOPHILS % (AUTO) 0.8 %; HGB - HEMOGLOBIN 7.7 g/dL (12.0-16.0); MEAN CORPUSCULAR HGB CONC 29.2 g/dL (32.0-36.0); MEAN CORPUSCULAR VOLUME 106.5 fL (81.0-99.0); MEAN PLATELET VOLUME 11.2 fL (7.9-10.8); MONOCYTES % (AUTO) 4.5 %; NEUTROPHILS % (AUTO) 89.5 %; PLT - PLATELET COUNT 188 10^3/uL (130-450); RED BLOOD COUNT 2.48 10^6/uL (4.20-5.40); WHITE BLOOD COUNT 21.1 x10^3/uL (4.8-10.8)
[2019-04-26 12:20] LABS: ALBUMIN 2.4 g/dL (3.2-5.5); ALBUMIN/GLOBULIN RATIO 1.1 (1.0-2.2); BILIRUBIN,TOTAL 0.4 mg/dL (0.2-1.0); CALCIUM 7.9 mg/dL (8.5-10.3); CREATININE 4.2 mg/dL (0.4-1.0); TOTAL PROTEIN 4.5 g/dL (6.7-8.2)
[2019-04-26 12:58] LABS: ABNORMAL LYMPHS % (MANUAL) 0 %
[2019-04-26 12:59] LABS: BAND NEUTROPHILS % (MANUAL) 1 %; EOSINOPHILS # (MANUAL) 0.2 10^3/uL (0-0.7); LYMPHOCYTES # (MANUAL) 1.3 10^3/uL (1.5-3.5); LYMPHOCYTES % (MANUAL) 6 %; MONOCYTES # (MANUAL) 0.4 10^3/uL (0.0-1.0)
[2019-04-26 13:03] LABS: DIFFERENTIAL COMMENT MANUAL DIFFERENTIAL; PLATELET ESTIMATE, MANUAL NORMAL (130-450,000) (NORMAL); PLATELET MORPHOLOGY NORMAL APPEARANCE (NORMAL)
== END 2019-04-26 23:59 | disposition home or self-care (01) ==
LOC: LAB.R 08:00
DX: I11.0 Hypertensive heart disease with heart failure (principal); I50.43 Acute on chronic combined systolic (congestive) and diastolic (congestive) heart failure; R82.90 Unspecified abnormal findings in urine; R39.0 Extravasation of urine
CPT/HCPCS: 80053; 81001; 81003; 85025; 87086

== ENCOUNTER 2019-04-27 08:00 | Outpatient (CLI) | payer MEDICARE, OTHER ==
[2019-04-27 01:12] LABS: BILIRUBIN,URINE NEGATIVE (NEGATIVE); GLUCOSE, URINE (UA) 100 mg/dL (NEGATIVE); KETONES,URINE (UA) NEGATIVE (NEGATIVE); LEUKOCYTE ESTERASE, URINE TRACE (NEGATIVE); NITRITE,URINE NEGATIVE (NEGATIVE); OCCULT BLOOD,URINE NEGATIVE (NEGATIVE); PROTEIN,URINE 100 mg/dL (NEGATIVE); UROBILINOGEN,URINE 0.2 (NORMAL) E.U./dL (NORMAL)
[2019-04-27 01:13] LABS: CLARITY,URINE CLEAR (CLEAR)
[2019-04-27 01:21] LABS: RBC,URINE None Seen /HPF (0-5); SQUAMOUS EPITHELIAL CELL,UR RARE Squamous (<= Few)
[2019-04-27 01:22] LABS: BACTERIA,URINE Few /HPF (None Seen)
== END 2019-04-27 23:59 | disposition home or self-care (01) ==
LOC: LAB.R 08:00
PROVIDERS: ATTEND Family Medicine
DX: R82.90 Unspecified abnormal findings in urine (principal); R39.0 Extravasation of urine
CPT/HCPCS: 81001; 81003; 87086